=== PATIENT | male | born 1950 | race Caucasian/White ===

== ENCOUNTER 2016-05-14 19:02 | Emergency (ER) | payer BC ==
[~2016-05-14] VITALS: Ht 172.7 cm; Wt 113.6 kg
[~2016-05-14 19:02] MED LIST: ALLO100T PO; ALLO100T51 PO; ASPI-611 PO; CITA20TA9 PO; CYCL-375 PO; DOCU-168 PO; HYDR-1343 PO; LISI-621 PO; OXYC-544 PO; PNV1TABL77 PO; POLY17PO6 PO; ROPI1TAB12 PO
[2016-05-14 19:09] VITALS: Ht 172.7 cm; Wt 113.6 kg
--- OUTSIDE RECORDS SUMMARY | 2016-05-14 19:10 | XMS REPORT | Referral Summary ---
Author Author [facility] Organization [facility] Address Unknown Phone Unavailable Care Team Providers Care Jet Pilot Name Role Phone Natali Velazquez Primary Care Physician [phone] Encounter [facility] Date(s): 07/07/14 - 07/07/14 [facility] [address] [facility], [address] [address] Discharge Disposition: 01-Home or Self Care Attending Physician: Acosta Pitts MD Vital Signs No data available for this section Problem List Condition Effective Dates Status Health Status Informant Depression(Confirmed Active ) Depression(Confirmed Active ) Depression(Confirmed Active ) GERD Active (gastroesophageal reflux disease)(Confirmed) Gout NOS(Confirmed) Active Hypersomnia with Active sleep apnea(Confirmed) Hypertension, Active benign(Confirmed) Hypertension(Confirm Active ed) Involuntary Active movements(Confirmed) Obesity(Confirmed) Active patient Obesity(Confirmed) Active patient JOSE on Active CPAP(Confirmed)1 RLS (restless legs Active syndrome)(Confirmed) Rotator cuff tear Active (bilateral)(Confirme d) 1uses a c-pap machine Allergies, Adverse Reactions, Alerts Substance Reaction Severity Status aspirin GI Bleeding Active caffeine GI Bleeding Active Medications allopurinol 100 mg oral tablet See Instructions, TAKE TWO TABLETS IN THE AM AND 1 AT BEDTIME, # 60 tabs, eRx: [email or web address], TAKE TWO TABLETS BY MOUTH ONCE DAILY Start Date: 01/01/15 Status: Ordered aspirin 81 mg, Oral, Daily, 0 Refill(s) Start Date: 08/24/13 Status: Ordered citalopram 20 mg oral tablet 20 mg 1 tabs, Oral, Daily, # 90 tabs, 2 Refill(s) Start Date: 09/19/14 Status: Ordered Colace 100 mg oral capsule 100 mg 1 caps, Oral, BID, # 20 caps, 0 Refill(s) Start Date: 01/10/15 Status: Ordered cyclobenzaprine 10 mg oral tablet 10 mg 1 tabs, Oral, BID, as needed for spasm, # 30 tabs, 0 Refill(s) Start Date: 01/10/15 Status: Ordered Flonase 50 mcg/inh nasal spray 2 sprays, Nasal, Daily, # 16 g, 11 Refill(s), Pharmacy: [facility] 242 Start Date: 01/10/14 Stop Date: 01/05/15 Status: Ordered lisinopril 20 mg oral tablet See Instructions, TAKE ONE TABLET BY MOUTH ONCE DAILY, # 30 tabs, 4 Refill(s), eRx: [facility]28, TAKE ONE TABLET BY MOUTH ONCE DAILY Start Date: 08/28/14 Status: Ordered [place] 7.5 mg-325 mg oral tablet 1 -2 tabs, Oral, q4hr, as needed for pain, rx must last 30 days--- fax to [facility], # 90 tabs, 0 Refill(s) Start Date: 09/08/14 Status: Ordered promethazine 25 mg oral tablet See Instructions, 1 tabs Oral q4hr,x30 days,PRN:as needed for nausea/vomiting, # 60 tabs, eRx: [facility], 1 tabs Oral q4hr,x30 days,PRN:as needed for nausea/vomiting Start Date: 12/05/14 Status: Ordered rOPINIRole 1 mg oral tablet See Instructions, TAKE ONE TABLET BY MOUTH 4 TIMES DAILY, # 120 tabs, 2 Refill(s ), eRx: [facility]28, TAKE ONE TABLET BY MOUTH 4 TIMES DAILY Start Date: 12/13/14 Status: Ordered Roxicodone 5 mg oral tablet 1-3 tabs, Oral, q3hr, as needed for pain, 0 Refill(s) Start Date: 01/10/15 Status: Ordered Results No data available for this section Immunizations No data available for this section Procedures Procedure Date Related Diagnosis Body Site Colonoscopy1 09/05/13 Athr knees shoulders2 Back surgery Carpal tunnel release Nasal septum repair3 Rotator cuff repair4 Vasectomy 1 normal, repeat in 10 years 2see conversion document. 3see conversion document. 4x6 Social History Social History Type Response Smoking Status Former smoker; Type: Cigarettes; Tobacco use per day: More than 1 pack; Number of years: 20 Assessment and Plan Extracted from: Title: CPAP VON Author: Shoshana Mcpherson PRIMER WATERPROOFING MACHINE OPERATOR Date: 07/06/14 SUPPLIES
--- OUTSIDE RECORDS SUMMARY | 2016-05-14 19:10 | XMS REPORT | Referral Summary ---
Author Author [facility] [place] Organization [facility] [place] Address Unknown Phone Unavailable Care Team Providers Care Plastering Contractor Name Role Phone Marcus Natali Primary Care Physician [phone] Encounter Date(s): 10/02/14 - 10/02/14 [facility] [place] [address], [place] [address] Discharge Disposition: 01-Home or Self Care Attending Physician: Hermelindo Dougherty MD Vital Signs No data available for [...] AND 1 AT BEDTIME, # 60 tabs, 3 Refill(s), Pharmacy: [facility], TAKE TWO TABLETS IN THE AM AND 1 AT BEDTIME Start Date: 01/24/15 Status: Ordered aspirin 81 mg, Oral, Daily, [...] # 16 g, 11 Refill(s), Pharmacy: [facility] 242 Start Date: 01/10/14 Stop Date: 01/05/15 Status: Ordered lisinopril 20 mg oral tablet See Instructions, TAKE ONE TABLET BY MOUTH ONCE DAILY, # 90 Each, 0 Refill(s), Pharmacy: [facility] 242 Start Date: 02/19/15 Status: Ordered [place] 7.5 mg-325 mg oral tablet 1 -2 tabs, Oral, q4hr, as needed for pain, rx must last 30 days--- fax to [facility], # 90 tabs, 0 Refill(s) Start Date: 09/08/14 Status: Ordered promethazine 25 mg oral tablet See Instructions, 1 tabs Oral q4hr,x30 days,PRN:as needed for nausea/vomiting, # 60 tabs, 3 Refill(s), Pharmacy: [facility], 1 tabs Oral q4hr,x30 days,PRN:as needed for nausea/vomiting Start Date: 01/25/15 Status: Ordered rOPINIRole 1 mg oral tablet See Instructions, TAKE ONE TABLET BY MOUTH 4 TIMES DAILY, # 120 tabs, 1 Refill(s ), Pharmacy: [facility]28, TAKE ONE TABLET BY MOUTH 4 TIMES DAILY Start Date: 03/20/15 Status: Ordered Results No data available for [...] Assessment and Plan Extracted from: Title: CPAP CHANGE PRESSURE Author: Jennifer Hines HAIR MACHINE OPERATOR Date: 10/02/14 Increased CPAP pressure to 13cm h20 per Dr. Fajardo.
--- OUTSIDE RECORDS SUMMARY | 2016-05-14 19:10 | XMS REPORT | Referral Summary ---
Author Author [facility] [place] Organization [facility], [place] [address] [place] Address Unknown Phone Unavailable Care Team Providers Care Lace Weaver Name Role Phone Natali Velazquez Primary Care Physician [phone] Encounter [facility] [id number] Date(s): 05/15/15 - 05/15/15 [facility], [address] [place] [address] [place], [place] [address] Discharge Disposition: 01-Home or Self Care Attending Physician: Noemi Lin Admitting Physician: Noemi Lin Referring Physician: Noemi Lin Vital Signs No data available for this [...] AND 1 AT BEDTIME, # 60 tabs, 1 Refill(s), eRx: [facility], TAKE TWO TABLETS IN THE AM AND 1 AT BEDTIME Start Date: 05/15/15 Status: Ordered aspirin 81 mg, Oral, Daily, [...] oral tablet 10 mg 1 tabs, Oral, Daily, as needed for spasm, # 30 tabs, 0 Refill(s) Start Date: 01/10/15 Status: Ordered lisinopril 20 mg oral tablet See Instructions, TAKE ONE TABLET BY MOUTH ONCE DAILY, # 90 Each, 0 Refill(s), Pharmacy: [facility] 2428 Start Date: 02/19/15 Status: Ordered MiraLax 17 g, Oral, Daily, 0 Refill(s) Start Date: 04/26/15 Status: Ordered multivitamin Daily, 0 Refill(s) Start Date: 04/26/15 Status: Ordered [place] 7.5 mg-325 mg oral tablet 1 -2 tabs, Oral, q4hr, as needed for pain, rx must last 30 days--- fax to [facility], # 90 tabs, 0 Refill(s) Start Date: 09/08/14 Status: Ordered promethazine 25 mg oral tablet See Instructions, 1 tabs Oral q4hr,x30 days,PRN:as needed for nausea/vomiting, # 60 tabs, 3 Refill(s), Pharmacy: [facility]28, 1 tabs Oral q4hr,x30 days,PRN:as needed for nausea/vomiting Start Date: 01/25/15 Status: Ordered rOPINIRole 1 mg oral tablet See Instructions, TAKE ONE TABLET BY MOUTH 4 TIMES DAILY, # 120 tabs, 1 Refill(s ), Pharmacy: [facility] 2428, TAKE ONE TABLET BY MOUTH 4 TIMES DAILY Start Date: 03/20/15 Status: Ordered Roxicodone 5 mg oral tablet 1-3 tabs, Oral, q3hr, as needed for pain, 0 Refill(s) Start Date: 04/26/15 Status: Ordered Results No data available for [...] Assessment and Plan Extracted from: Title: CPAP SET UP Author: Alicia Reynoso FISH HEADER Date: 05/15/15 Replacement cpap S10 Airsense Autoset @13cm per Noemi HANDY / Solitario lt: lg with headgear, S10 filters. Purchase
--- OUTSIDE RECORDS SUMMARY | 2016-05-14 19:11 | XMS REPORT | Referral Summary ---
Author Author [facility] [place] Organization [facility] [place] Address Unknown Phone Unavailable Care Team Providers Care Windlace Machine Operator Name Role Phone MarcusNatali Primary Care Physician [phone] Encounter [facility] [id number] Date(s): 08/08/14 - 08/08/14 [facility] [place] [address] [place], [place] [address] Discharge Diagnosis: RLS (restless legs syndrome) Discharge Diagnosis: Hypersomnia with sleep apnea Discharge Diagnosis: JOSE on CPAP Discharge Disposition: 01-Home or Self Care Attending Physician: Hermelindo Dougherty MD Admitting Physician: Hermelindo Dougherty MD Referring Physician: Noemi Lin Vital Signs Most recent to 1 oldest [Reference Range]: Peripheral Pulse 87 bpm Rate [60-100 bpm] (08/08/14 3:41 PM) Blood Pressure 118/80 mmHg [90-140/60-90 mmHg] (08/08/14 3:41 PM) SpO2 95 % (08/08/14 3:41 PM) Problem List Condition Effective Dates Status Health [...] BEDTIME, # 60 tabs, 3 Refill(s), Pharmacy: [facility] 2428, TAKE TWO TABLETS IN THE AM [...] Daily, # 16 g, 11 Refill(s), Pharmacy: [place] [address] Start Date: 01/10/14 Stop Date: 01/05/15 Status: Ordered lisinopril 20 mg oral tablet See Instructions, TAKE ONE TABLET BY MOUTH ONCE DAILY, # 30 tabs, eRx: [facility], TAKE ONE TABLET BY MOUTH ONCE DAILY Start Date: 01/18/15 Status: Ordered [place] 7.5 mg-325 mg oral tablet 1 -2 tabs, Oral, q4hr, as needed for pain, rx must last 30 days--- fax to [facility], # 90 tabs, 0 Refill(s) Start Date: 09/08/14 Status: Ordered promethazine 25 mg oral tablet See Instructions, 1 tabs Oral q4hr,x30 days,PRN:as needed for nausea/vomiting, # 60 tabs, 3 Refill(s), Pharmacy: [facility] 242, 1 tabs Oral q4hr,x30 days,PRN:as needed for nausea/vomiting Start Date: 01/25/15 Status: Ordered rOPINIRole 1 mg oral tablet See Instructions, TAKE ONE TABLET BY MOUTH 4 TIMES DAILY, # 120 tabs, 2 Refill(s ), eRx: [facility] 242, TAKE ONE TABLET BY MOUTH 4 TIMES DAILY Start Date: 12/13/14 Status: Ordered Results No data available for [...] 20 Assessment and Plan Extracted from: Title: Office Visit Note Author: Hermelindo Dougherty Date: 08/12/14 Assessment/Plan 1.RLS (restless legs syndrome) - Patient is taking too many medications without a consistent scheule. - Not getting much benefit from current dose of neupro. - Uncertain when he is taking [place]. - Discussed how to apply neupro patch, ideally stick to two areas of two locations. - Change application to AM if possible. - Follow diaries with detailed information on current symptoms and timing of medications. 2.Hypersomnia with sleep apnea - Uncertain if due to medications or severe RLS. 3.JOSE on CPAP - Controlled with good complince.
--- OUTSIDE RECORDS SUMMARY | 2016-05-14 19:11 | XMS REPORT | Referral Summary ---
Author Author [facility] [place] Organization [facility], [place] Address Unknown Phone Unavailable Care Team Providers Care Branch Rental Manager Name Role Phone Natali Velazquez Primary Care Physician [phone] Encounter Date(s): 05/09/15 - 05/09/15 [facility] [place] [address] [place], [place] [address] Discharge Disposition: 01-Home or Self Care Attending Physician: Noemi Lin Admitting Physician: Noemi Lin Vital Signs Most recent to 1 oldest [Reference Range]: Apical Heart Rate 91 bpm [60-100 bpm] (05/09/15 8:03 AM) Blood Pressure 128/70 mmHg [90-140/60-90 mmHg] (05/09/15 8:03 AM) SpO2 98 % (05/09/15 8:03 AM) Problem List Condition Effective Dates Status Health [...] 1 AT BEDTIME, # 60 tabs, eRx: [facility], TAKE TWO TABLETS IN THE AM AND 1 AT BEDTIME Start Date: 04/19/15 Status: Ordered aspirin 81 mg, Oral, Daily, [...] DAILY, # 90 Each, 0 Refill(s), Pharmacy: [facility] 2428 Start Date: 02/19/15 Status: Ordered MiraLax 17 g, Oral, Daily, 0 Refill(s) Start Date: 04/26/15 Status: Ordered multivitamin Daily, 0 Refill(s) Start Date: 04/26/15 Status: Ordered [place] 7.5 mg-325 mg oral tablet 1 -2 tabs, Oral, q4hr, as needed for pain, rx must last 30 days--- fax to [facility], # 90 tabs, 0 Refill(s) Start Date: 09/08/14 Status: Ordered promethazine 25 mg oral tablet See Instructions, 1 tabs Oral q4hr,x30 days,PRN:as needed for nausea/vomiting, # 60 tabs, 3 Refill(s), Pharmacy: [facility]28, 1 tabs Oral q4hr,x30 days,PRN:as needed for nausea/vomiting Start Date: 01/25/15 Status: Ordered rOPINIRole 1 mg oral tablet See Instructions, TAKE ONE TABLET BY MOUTH 4 TIMES DAILY, # 120 tabs, 1 Refill(s ), Pharmacy: [facility] 2428, TAKE ONE TABLET BY MOUTH [...] Number of years: 20 Assessment and Plan No data available for this section
--- OUTSIDE RECORDS SUMMARY | 2016-05-14 19:11 | XMS REPORT | Referral Summary ---
Author Author [facility] [place], [facility] Organization [facility] [place] [facility] Address Unknown Phone Unavailable Care Team Providers Care Edi Programmer Analyst Name Role Phone Rosamaria Soni Primary Care Physician [phone] Encounter Date(s): 12/20/14 - 12/20/14 [facility] [place], [address] [place] [id number] Discharge Diagnosis: GERD (gastroesophageal reflux disease) Discharge Diagnosis: Gout Discharge Diagnosis: Hypertension Discharge Diagnosis: Rotator cuff tear Discharge Diagnosis: RLS (restless legs syndrome) Discharge Diagnosis: JOSE on CPAP Discharge Diagnosis: Depression Discharge Disposition: 01-Home or Self Care Attending Physician: Mic Soni MD Admitting Physician: Mic Soni MD Vital Signs Most recent to 1 oldest [Reference Range]: Temperature Tympanic 36.8 degC [36.6-38.1 degC] (12/20/14 9:11 AM) Peripheral Pulse 92 bpm Rate [60-100 bpm] (12/20/14 9:11 AM) Respiratory Rate 18 br/min [14-20 br/min] (12/20/14 9:11 AM) Blood Pressure 108/68 mmHg [90-140/60-90 mmHg] (12/20/14 9:11 AM) Problem List Condition Effective Dates Status [...] oral tablet See Instructions, TAKE TWO TABLETS BY MOUTH ONCE DAILY, # 60 tabs, 5 Refill(s), eRx: [facility] 2428, TAKE TWO TABLETS BY MOUTH ONCE DAILY Start Date: 08/07/14 Status: Ordered aspirin 81 mg, Oral, Daily, 0 Refill(s) Start Date: 08/24/13 Status: Ordered citalopram 20 mg oral tablet 20 mg 1 tabs, Oral, Daily, # 90 tabs, 2 Refill(s) Start Date: 09/19/14 Status: Ordered Flonase 50 mcg/inh nasal spray 2 sprays, Nasal, Daily, # 16 g, 11 Refill(s), Pharmacy: [place] [id number] Start Date: 01/10/14 Stop Date: 01/05/15 Status: Ordered lisinopril 20 mg oral tablet See Instructions, TAKE ONE TABLET BY MOUTH ONCE DAILY, # 30 tabs, 4 Refill(s), eRx: [facility] 242, TAKE ONE TABLET BY MOUTH ONCE DAILY Start Date: 08/28/14 Status: Ordered [place] 7.5 mg-325 mg oral tablet 1 -2 tabs, Oral, q4hr, as needed for pain, rx must last 30 days--- fax to [facility], # 90 tabs, 0 Refill(s) Start Date: 09/08/14 Status: Ordered promethazine 25 mg oral tablet See Instructions, 1 tabs Oral q4hr,x30 days,PRN:as needed for nausea/vomiting, # 60 tabs, eRx: [facility] 2428, 1 tabs Oral q4hr,x30 days,PRN:as needed for nausea/vomiting Start Date: 12/05/14 Status: Ordered rOPINIRole 1 mg oral tablet See Instructions, TAKE ONE TABLET BY MOUTH 4 TIMES DAILY, # 120 tabs, 2 Refill(s ), eRx: [facility] 2428, TAKE ONE TABLET BY MOUTH 4 TIMES DAILY Start Date: 12/13/14 Status: Ordered Results Hematology Most recent to 1 oldest [Reference Range]: WBC [4.8-10.8 5.0 10*3/uL 10*3/uL] (12/20/14 10:15 AM) RBC [4.60-6.20] 4.19 *LOW* (12/20/14 10:15 AM) Hgb [14.0-18.0 13.9 gm/dL gm/dL] *LOW* (12/20/14 10:15 AM) Hct [42.0-52.0 %] 39.9 % *LOW* (12/20/14 10:15 AM) MCV [82.0-99.0 fL] 95.2 fL (12/20/14 10:15 AM) MCH [27.0-32.0 pg] 33.2 pg *HI* (12/20/14 10:15 AM) MCHC [32.0-36.0 34.8 gm/dL gm/dL] (12/20/14 10:15 AM) RDW [11.5-14.5 %] 12.6 % (12/20/14 10:15 AM) Platelet [150-400 218 10*3/uL 10*3/uL] (12/20/14 10:15 AM) MPV [8.8-14.8 fL] 9.2 fL (12/20/14 10:15 AM) Immature 0.4 % Granulocytes (12/20/14 10:15 AM) [0.0-1.0 %] Neutrophils [51-75 60 % %] (12/20/14 10:15 AM) Lymphocytes [20-46 26 % %] (12/20/14 10:15 AM) Monocytes [4-11 %] 10 % (12/20/14 10:15 AM) Eosinophils [0-4 %] 2 % (12/20/14 10:15 AM) Basophils [0-2 %] 1 % (12/20/14 10:15 AM) Neutro Absolute 2.99 10*3 [1.90-7.00 10*3] (12/20/14 10:15 AM) Lymph Absolute 1.31 10*3 [0.80-3.30 10*3] (12/20/14 10:15 AM) Morrison Absolute 0.51 10*3 [0.30-1.00 10*3] (12/20/14 10:15 AM) Eos Absolute 0.11 10*3 [0.00-0.50 10*3] (12/20/14 10:15 AM) Baso Absolute 0.03 10*3 [0.00-0.20 10*3] (12/20/14 10:15 AM) Coagulation Most recent to 1 oldest [Reference Range]: PT Venous (12/20/14 10:15 AM) INR [0.8-1.2] 1.0 1 (12/20/14 10:15 AM) 1Result Comment: Normal (no anticoagulant): 0.8 - 1.2 Units Routine Therapeutic Range: 2.0 - 3.0 Units High Risk Therapeutic Range: 2.5 - 3.5 Units Chemistry Most recent to 1 oldest [Reference Range]: Sodium Lvl [135-144 138 mEq/L mEq/L] (12/20/14 10:15 AM) Potassium Lvl 4.7 mEq/L [3.5-5.2 mEq/L] (12/20/14 10:15 AM) Chloride [99-111 106 mEq/L mEq/L] (12/20/14 10:15 AM) CO2 [23-31 mEq/L] 24 mEq/L (12/20/14 10:15 AM) AGAP [3-20] 8 (12/20/14 10:15 AM) BUN [8-26 mg/dL] 27 mg/dL *HI* (12/20/14 10:15 AM) Glucose Lvl [70-99 106 mg/dL mg/dL] *HI* (12/20/14 10:15 AM) Creatinine Lvl 1.26 mg/dL [0.72-1.25 mg/dL] *HI* (12/20/14 10:15 AM) eGFR [>60 mL/min] 58 mL/min 1 *ABN* (12/20/14 10:15 AM) Calcium Lvl 9.6 mg/dL [8.9-10.5 mg/dL] (12/20/14 10:15 AM) Albumin Lvl [3.4-4.8 4.6 gm/dL gm/dL] (12/20/14 10:15 AM) Total Protein 7.2 gm/dL [6.2-8.1 gm/dL] (12/20/14 10:15 AM) Globulin [1.8-4.0 2.6 gm/dL gm/dL] (12/20/14 10:15 AM) ALT [0-55 U/L] 49 U/L (12/20/14 10:15 AM) AST [5-34 U/L] 31 U/L (12/20/14 10:15 AM) Alk Phos [40-150 85 U/L U/L] (12/20/14 10:15 AM) Bili Total [0.2-1.2 0.5 mg/dL mg/dL] (12/20/14 10:15 AM) Uric Acid [3.5-7.2 5.8 mg/dL mg/dL] (12/20/14 10:15 AM) 1Result Comment: Multiply eGFR results by 1.21 for race. Immunizations No data available for this section Procedures Procedure Date Related Diagnosis Body Site Collection of venous blood by venipuncture 12/20/14 Colonoscopy1 09/05/13 Athr knees shoulders2 Back surgery [...] Extracted from: Title: Office Visit Note Author: Mic Soni MD Date: 12/20/14 Assessment/Plan Depression GERD (gastroesophageal reflux disease) Gout Ordered: CBC w/ Differential Uric Acid Hypertension Ordered: Comprehensive Metabolic Panel EKG with Interpretation [id number] PT JOSE on CPAP RLS (restless legs syndrome) Rotator cuff tear Plan:I am giving clearance for surgery. Do not take aspirin, ibuprofen, Advil, Aleve, Motrin, or naproxen with in 10 days of surgery. Contact your surgeon for a full list of medicines that you should avoid. If you are having any problems before or after surgery please do not hesitate to call. Continue all current medications other than the aspirin and NSAIDs up until that time. I am checking an EKG and lab tests today. Call if you have any questions or problems prior to surgery.
--- OUTSIDE RECORDS SUMMARY | 2016-05-14 19:11 | XMS REPORT | Referral Summary ---
Author Author [facility] [place] Organization [facility] [place] Address Unknown Phone Unavailable Care Team Providers Care Hot Metal Car Operator Name Role Phone MarcusNatali Primary Care Physician [phone] Encounter [facility] [id number] Date(s): 10/02/14 - 10/02/14 [facility] [place] [address] [place], [place] [address] Discharge Diagnosis: JOSE on CPAP Discharge Diagnosis: Hypersomnia with sleep apnea Discharge Diagnosis: RLS (restless legs syndrome) Discharge Diagnosis: Obesity Discharge Disposition: 01-Home or Self Care Attending Physician: Hermelindo Dougherty MD Admitting Physician: Hermelindo Dougherty MD Vital Signs Most recent to 1 oldest [Reference Range]: Peripheral Pulse 89 bpm Rate [60-100 bpm] (10/02/14 3:37 PM) Blood Pressure 122/66 mmHg [90-140/60-90 mmHg] (10/02/14 3:37 PM) SpO2 93 % (10/02/14 3:37 PM) Problem List Condition Effective Dates Status [...] BEDTIME, # 60 tabs, 3 Refill(s), Pharmacy: [facility], TAKE TWO TABLETS IN THE [...] Daily, # 16 g, 11 Refill(s), Pharmacy: [facility] 242 Start Date: 01/10/14 Stop Date: 01/05/15 Status: Ordered lisinopril 20 mg oral tablet See Instructions, TAKE ONE TABLET BY MOUTH ONCE DAILY, # 90 Each, 0 Refill(s), Pharmacy: [facility] 242 Start Date: 02/19/15 Status: Ordered [place] 7.5 mg-325 mg oral tablet 1 -2 tabs, Oral, q4hr, as needed for pain, rx must last 30 days--- fax to [facility], # 90 tabs, 0 Refill(s) Start Date: 09/08/14 Status: Ordered promethazine 25 mg oral tablet See Instructions, 1 tabs Oral q4hr,x30 days,PRN:as needed for nausea/vomiting, # 60 tabs, 3 Refill(s), Pharmacy: [facility] 2428, 1 tabs Oral q4hr,x30 days,PRN:as needed for nausea/vomiting Start Date: 01/25/15 Status: Ordered rOPINIRole 1 mg oral tablet See Instructions, TAKE ONE TABLET BY MOUTH 4 TIMES DAILY, # 120 tabs, 1 Refill(s ), Pharmacy: [facility]28, TAKE ONE TABLET BY [...] Office Visit Note Author: Hermelindo Dougherty Date: 10/03/14 Assessment/Plan 1.RLS (restless legs syndrome) - Controlled, continue Neupro. 2.JOSE on CPAP - Increase CPAP to 13 cmH2O. 3.Hypersomnia with sleep apnea - Follow up in 6 mon. - Patient advised to avoid driving and other potentially harmful activities if feeling sleepy, drowsy or otherwise impaired. Countermeasures such as pulling over to nap and napping before driving discussed. Obesity - Weight loss recommended.
--- OUTSIDE RECORDS SUMMARY | 2016-05-14 19:11 | XMS REPORT | Referral Summary ---
Author Author [facility] [employer] Organization [facility] [place] Address Unknown Phone Unavailable Care Team Providers Care Outpatient Scheduler Name Role Phone MarcusNatali Primary Care Physician [phone] Encounter VC Date(s): 05/09/15 - 05/09/15 [facility] [place] [address], [place] [address] Discharge Disposition: 01-Home or Self Care Attending Physician: Noemi Lin Vital Signs No data [...] 1 AT BEDTIME, # 60 tabs, eRx: [id number], TAKE TWO TABLETS IN THE [...] DAILY, # 90 Each, 0 Refill(s), Pharmacy: [facility] Start Date: 02/19/15 Status: Ordered MiraLax 17 g, Oral, Daily, 0 Refill(s) Start Date: 04/26/15 Status: Ordered multivitamin Daily, 0 Refill(s) Start Date: 04/26/15 Status: Ordered [place] 7.5 mg-325 mg oral tablet 1 -2 tabs, Oral, q4hr, as needed for pain, rx must last 30 days--- fax to [facility], # 90 tabs, 0 Refill(s) Start Date: 09/08/14 Status: Ordered promethazine 25 mg oral tablet See Instructions, 1 tabs Oral q4hr,x30 days,PRN:as needed for nausea/vomiting, # 60 tabs, 3 Refill(s), Pharmacy: [facility], 1 tabs Oral q4hr,x30 days,PRN:as needed for nausea/vomiting Start Date: 01/25/15 Status: Ordered rOPINIRole 1 mg oral tablet See Instructions, TAKE ONE TABLET BY MOUTH 4 TIMES DAILY, # 120 tabs, 1 Refill(s ), Pharmacy: [facility], TAKE ONE TABLET [...] Assessment and Plan Extracted from: Title: CPAP FAX Author: Alicia Reynoso NUT PROCESS HELPER Date: 05/09/15 [place]ed [place] [facility] [place] Noemi HANDY. Extracted from: Title: CPAP SUPPLIES Author: Alicia Reynoso NUT PROCESS HELPER Date: 05/09/15 Std tubing, S8 filters
--- OUTSIDE RECORDS SUMMARY | 2016-05-14 19:11 | XMS REPORT | Referral Summary ---
Author Author [facility] Organization [facility] Address Unknown Phone Unavailable Care Team Providers Care Power Distribution Engineer Name Role Phone Rosamaria Soni Primary Care Physician [phone] Encounter VC Date(s): 07/17/14 - 07/17/14 [facility], [address] JANELL [place] [id number] Discharge Diagnosis: BENIGN ESSENTIAL HYPERTENSION Discharge Disposition: 01-Home or Self Care Attending Physician: Mic Soni MD Admitting Physician: Mic Soni MD Referring Physician: Mic Soni MD Vital Signs Most recent to 1 oldest [Reference Range]: Temperature Tympanic 36.5 degC [36.6-38.1 degC] *LOW* (07/17/14 4:18 PM) Blood Pressure 112/64 mmHg [90-140/60-90 mmHg] (07/17/14 4:18 PM) Problem List Condition Effective Dates Status [...] DAILY, # 60 tabs, 5 Refill(s), eRx: [id number], TAKE TWO TABLETS BY MOUTH ONCE DAILY Start Date: 08/07/14 Status: Ordered aspirin 81 mg, Oral, Daily, 0 Refill(s) Start Date: 08/24/13 Status: Ordered citalopram 20 mg oral tablet 20 mg 1 tabs, Oral, Daily, # 90 tabs, 2 Refill(s) Start Date: 09/19/14 Status: Ordered Flonase 50 mcg/inh nasal spray 2 sprays, Nasal, Daily, # 16 g, 11 Refill(s), Pharmacy: [facility]28 Start Date: 01/10/14 Stop Date: 01/05/15 Status: Ordered lisinopril 20 mg oral tablet See Instructions, TAKE ONE TABLET BY MOUTH ONCE DAILY, # 30 tabs, 4 Refill(s), eRx: [facility], TAKE ONE TABLET BY MOUTH ONCE DAILY Start Date: 08/28/14 Status: Ordered Neupro 3 mg/24 hr transdermal film, extended release 1 patches, Topical, Daily, # 90 Each, 1 Refill(s), Pharmacy: [place] [id number], 1 patches Topical Daily Start Date: 10/20/14 Status: Ordered [place] 7.5 mg-325 mg oral tablet 1 -2 tabs, Oral, q4hr, as needed for pain, rx must last 30 days--- fax to [facility], # 90 tabs, 0 Refill(s) Start Date: 09/08/14 Status: Ordered omeprazole 20 mg oral delayed release capsule See Instructions, TAKE ONE CAPSULE BY MOUTH EVERY DAY BEFORE A MEAL, # 30 unknown unit, 5 Refill(s), eRx: [facility], TAKE ONE CAPSULE BY MOUTH EVERY DAY BEFORE A MEAL Start Date: 12/23/13 Status: Ordered promethazine 25 mg oral tablet See Instructions, 1 tabs Oral q4hr,x30 days,PRN:as needed for nausea/vomiting, # 60 tabs, eRx: [facility], 1 tabs Oral q4hr,x30 days,PRN:as needed for nausea/vomiting Start Date: 12/05/14 Status: Ordered rOPINIRole 1 mg oral tablet See Instructions, TAKE ONE TABLET BY MOUTH 4 TIMES DAILY, # 120 tabs, 2 Refill(s ), eRx: [facility], TAKE ONE TABLET BY MOUTH 4 TIMES DAILY Start Date: 11/4/15 Status: Ordered Results No data available for [...] Visit Note Author: Mic Soni MD Date: 07/17/14 Assessment/Plan BENIGN ESSENTIAL HYPERTENSION GERD (gastroesophageal reflux disease) RLS (restless legs syndrome) Plan: Okay to restart the omeprazole. You asked me for prescription of Phenergan night that. Continue Flonase for allergies. Follow-up in 6 months for sooner as needed. Orders: promethazine, 25 mg 1 tabs, Oral, q4hr, as needed for nausea/vomiting , X 30 days, # 60 tabs, 0 Refill(s), Pharmacy: [id number], 1 tabs Oral q4hr,x30 days,PRN:as needed for nausea/vomiting
--- OUTSIDE RECORDS SUMMARY | 2016-05-14 19:11 | XMS REPORT | Continuity of Care Document ---
Author Author [facility] Organization [facility] Address Unknown Phone Unavailable Allergies Active Description Code Type Severity Reaction Onset Reported/Identified Relationship to Patient Clinical Status Yes aspirin NKMA N/A GI Bleeding 06/08/2013 Yes caffeine NKMA N/A GI Bleeding 06/08/2013 Medications Problems Procedures Results Test Result Range Hemoglobin A1C - 11/13/15 10:30 Hemoglobin A1C 5.1 % 4.1-5.6 Estimated Average Glucose - 11/13/15 10:30 Estimated Average Glucose 99.7 mg/dL Encounters ACCT No. Visit Date/Time Discharge Status Pt. Type Provider Facility Loc./Unit Complaint [id number] 05/05/2016 09:53:00 2016 23:59:00 DIS Outpatient Scotty Moncada, Hermelindo A [facility] CP SUPPLIES [id number] 05/05/2016 08:19:00 2016 23:59:00 DIS Outpatient Scotty Moncada Hermelindo A [facility] 2 to 3 mo ck cpap [id number] 02/18/2016 08:18:00 2016 23:59:00 DIS Outpatient Scotty Moncada, Hermelindo A [facility] 3 mo cpap ck [id number] 11/20/2015 08:03:00 2015 23:59:00 DIS Outpatient Scotty Moncada Hermelindo A [facility] 6 week rck rls management [id number] 11/13/2015 07:59:00 2015 23:59:00 DIS Outpatient Marcelino Hodge [facility] New FM TCPA, Skin tags [id number] 08/07/2015 14:28:00 2015 23:59:00 DIS Outpatient Noemi Lin [facility] cpap supplies [id number] 08/07/2015 13:14:00 2015 23:59:00 DIS Outpatient [facility] 3 MON HEENA CPAP [id number] 08/06/2015 16:56:00 2015 23:59:00 DIS Outpatient [facility] 3 mo heena cpap [id number] 05/15/2015 12:58:00 2015 23:59:00 DIS Outpatient Noemi Lin [facility] replace cpap @13 no auth purchase [id number] 05/15/2015 10:05:00 2015 23:59:00 DIS Outpatient [facility] CPAP SUPPLIES [id number] 05/09/2015 09:46:00 2015 23:59:00 DIS Outpatient [facility] CPAP SUPPLIES [id number] 05/09/2015 07:56:00 2015 23:59:00 DIS Outpatient [facility] 6 mo fu cpap [id number] 04/09/2015 07:59:00 2015 23:59:00 DIS Outpatient Marcelino Hodge [facility] New FM PRE OP CPE FOR RT SHOULDER REPLACEMENT DR HARMON 3.14 [id number] 12/20/2014 09:03:00 2014 23:59:00 DIS Outpatient Mic Soni [facility] New FM pre op for total shoulder on [address] harmon [id number] 10/02/2014 16:04:00 2014 23:59:00 DIS Outpatient Hermelindo Dougherty [facility] cpap pressure change [id number] 10/02/2014 15:19:00 2014 23:59:00 DIS Outpatient Hermelindo Dougherty [facility] 6 to 8 week fu [id number] 09/19/2014 15:49:00 2014 23:59:00 DIS Outpatient Mic Soni [facility] New FM HEENA ELBERT [id number] 08/08/2014 15:17:00 2014 23:59:00 DIS Outpatient Scotty Hermelindo Moncada A [facility] 1 mo ck meds cpap [id number] 07/06/2014 13:56:00 2014 23:59:00 DIS Outpatient [facility] W CPAP SUPPLIES [id number] 01/10/2014 15:18:00 2013 23:59:00 DIS Outpatient Mic Soni [facility] New FM 3 WK HEENA/RLS [id number] 10/19/2013 11:51:00 2013 23:59:00 DIS Outpatient [facility] CPAP SUPPLIES [id number] 05/09/2015 08:31:00 ACT Outpatient Noemi Lin [facility] SUPPLIES [id number] 01/24/2015 08:18:00 ACT Outpatient Niesha Velazquez [facility] New FM ESTABLISH WAS PATIENT OF DR SONI [id number] 07/17/2014 16:07:00 Document Registration [id number] 07/07/2014 17:35:00 Document Registration [id number] 07/06/2014 15:57:00 Document Registration
--- OUTSIDE RECORDS SUMMARY | 2016-05-14 19:11 | XMS REPORT | Continuity of Care Document ---
Author Author [facility] Organization [facility] Address Unknown Phone Unavailable Support Name Relationship Address Phone SERA GONZÁLES MD Caregiver [address] [place] [address] [place] [phone] NANCY ALCALA FACS, MD Caregiver [address] [place] [address] [place] [phone] ASHWIN RIYA Next Of Kin [address] [place] [address] Insurance Providers Payer Name Policy Number Subscriber Name Relationship [facility] [id number] Tray Christopher 18 Self Advance Directives Directive Response Recorded Date/Time Dr Souza Resuscitation Status Full Code 09/04/13 11:00am Problems No known problems or medical conditions. Medications Medication Dose Route Sig Days/Qty Instructions Order Date Discontinued Date Status Telmisartan 20 Mg PO DAILY 02/16/09 04/01/11 Discontinued Allopurinol 300 Mg PO BEDTIME 02/16/09 Active Aspirin 81 Mg PO DAILY 02/16/09 Active Lisinopril 20 Mg PO DAILY 04/01/11 Active Fluoxetine Hcl 40 Mg PO DAILY 04/01/11 07/05/12 Discontinued Citalopram Hydrobromide 20 Mg PO BEDTIME 07/05/12 Active Bupropion Hcl 75 Mg PO BEDTIME 07/05/12 Active Hydrocodone Bit/Acetaminophen 2 Tab PO TWICE A DAY 09/15/12 Active Gabapentin Mg PO SEE INSTRUCTIONS 600 MG PO NOON; 900 MG PO HS Active Baclofen 10 Mg PO THREE TIMES A DAY 10/07/12 Active Omeprazole 20 Mg PO DAILY 09/02/13 Active Niacin 1 Tab PO TWICE A DAY 09/02/13 Active Social History Social History Problem Response Recorded Date/Time Smoking Status Former smoker 09/05/2013 7:59am Chewing Tobacco Status No 10/06/2012 12:13pm Hx Substance Use No 09/02/2013 5:26pm Hx Alcohol Use Y A BEER OR TWO A DAY 09/05/2013 7:59am Has the pt used tobacco in the last 12 months No 09/05/2013 7:59am Query Response Start Date Stop Date Smoking Status Former smoker Hospital Discharge Instructions No hospital discharge instructions. Plan of Care No plan of care. Functional Status No functional status results. Allergies, Adverse Reactions, Alerts Allergen Type Severity Reaction Status Last Updated Aspirin Adverse Reaction Mild Active 09/15/12 Naproxen Allergy Intermediate ULCERS Active 09/15/12 anti inflamitories Adverse Reaction severe nausea Active 04/01/11 Immunizations Name Given Type Hx Influenza Vaccination No Historical Hx Pneumococcal Vaccination No Historical Hx Influenza Vaccination No Historical Vital Signs Acute Vital Signs Vital Response Date/Time Temperature (Fahrenheit) 97.9 deg F (96.8 - 99.1) Temperature (Calculated Celsius) 36.74057 degrees C (36.0 - 37.3) Temperature Source Temporal Pulse Rate (adult) 66 bpm (60 - 100) Respiratory Rate 14 breaths/min (10 - 20) O2 Sat by Pulse Oximetry 96 % (90 - 100) Blood Pressure 121/72 mm Hg Blood Pressure Source Automatic Cuff Height 5 ft 8.5 in Weight 216 lb Body Mass Index 32.0 kg/m^2 Results Test Source Date Result Interp. Ref. Range Comments Basophils # (Auto) July 05, 2012 12:35pm 0.0 T/MM3 N 0-0.2 Basophils (%) (Auto) July 05, 2012 12:35pm 0.3 % N 0-2 Eosinophils # (Auto) July 05, 2012 12:35pm 0.0 T/MM3 N 0-0.5 Eosinophils (%) (Auto) July 05, 2012 12:35pm 0.1 % N 0-4 Erythrocyte Sedimentation Rate November 08, 2007 5:21pm 8 MM/HR - Hematocrit July 05, 2012 12:35pm 38.2 % L 41-53 Hemoglobin July 05, 2012 12:35pm 13.3 GM/DL L 13.5-17.5 Lymphocytes # (Auto) July 05, 2012 12:35pm 1.1 T/MM3 N 1-4.8 Lymphocytes (%) (Auto) July 05, 2012 12:35pm 15.4 % L 23-45 Mean Corpuscular Hemoglobin July 05, 2012 12:35pm 32.3 UUG N 26-34 Mean Corpuscular Hemoglobin Concent July 05, 2012 12:35pm 34.8 GM/DL N 31 -37 Mean Corpuscular Volume July 05, 2012 12:35pm 92.7 UM3 N 80-100 Mean Platelet Volume July 05, 2012 12:35pm 8.7 UM3 L 9.4-12.4 Monocytes # (Auto) July 05, 2012 12:35pm 0.9 T/MM3 H 0-0.8 Monocytes (%) (Auto) July 05, 2012 12:35pm 13.2 % H 0-9.0 Neutrophils # (Auto) July 05, 2012 12:35pm 4.9 T/MM3 N 1.8-7.7 Neutrophils (%) (Auto) July 05, 2012 12:35pm 70.7 % H 33-66 Platelet Count July 05, 2012 12:35pm 189 T/MM3 N 130-400 RDW Standard Deviation July 05, 2012 12:35pm 43.4 FL N 36.9-50.2 Red Blood Count July 05, 2012 12:35pm 4.12 M/MM3 L 4.50-5.90 Uric Acid November 08, 2007 5:21pm 8.6 MG/DL H 3.5-8.5 White Blood Count July 05, 2012 12:35pm 7.0 T/MM3 N 4.5-11.0 Immature Granulocyte # (Auto) July 05, 2012 12:35pm 0.02 T/MM3 N 0.00- 0.03 Immature Granulocyte % (Auto) July 05, 2012 12:35pm 0.3 % N 0.0-0.5 Venous Blood Lactate July 05, 2012 12:35pm 1.2 MMOL/L N 0.6-2.2 Blood Culture Blood July 05, 2012 12:35pm NO GROWTH AFTER 5 DAYS Procedures Procedure Status Date Provider(s) Colonoscopy completed 09/05/13 NANCY ALCALA MD, FACS, CWS
--- OUTSIDE RECORDS SUMMARY | 2016-05-14 19:11 | XMS REPORT | Referral Summary ---
Author Author [facility] [employer] Organization [facility] [place] Address Unknown Phone Unavailable Care Team Providers Care Railroad Auditor Name Role Phone MarcusNatali Primary Care Physician [phone] Encounter Date(s): 08/07/15 - 08/07/15 [facility] [place] [address], [place] [address] Discharge Disposition: 01-Home or Self Care Attending [...] See Instructions, TAKE TWO TABLETS BY MOUTH IN THE MORNING AND ONE AT BEDTIME, # 60 tabs, 2 Refill(s), eRx: [id number], TAKE TWO TABLETS BY MOUTH IN THE MORNING AND ONE AT BEDTIME Start Date: 06/25/15 Status: Ordered aspirin 81 mg, Oral, Daily, 0 Refill(s) Start Date: 08/24/13 Status: Ordered citalopram 20 mg oral tablet 20 mg 1 tabs, Oral, Daily, pt due for appointment, # 30 tabs, 0 Refill(s), Pharmacy: [facility], 1 tabs Oral Daily,Instr:pt due for appointment Start Date: 07/26/15 Status: Ordered Colace 100 mg oral capsule 100 mg 1 caps, Oral, BID, # 20 caps, 0 Refill(s) Start Date: 01/10/15 Status: Ordered cyclobenzaprine 10 mg oral tablet 10 mg 1 tabs, Oral, Daily, as needed for spasm, # 30 tabs, 0 Refill(s) Start Date: 01/10/15 Status: Ordered gabapentin 100 mg oral capsule See Instructions, Take 1 cap daily x 2 days, then 2 caps daily x 2 days, then 3 caps daily., # 90 tabs, 0 Refill(s), Pharmacy: [facility], Take 1 cap daily x 2 days, then 2 caps daily x 2 days, then 3 caps daily. Start Date: 08/07/15 Status: Ordered lisinopril 20 mg oral tablet 20 mg 1 tabs, Oral, Daily, pt due for appointment, # 30 tabs, 0 Refill(s), Pharmacy: [facility] Start Date: 07/26/15 Status: Ordered MiraLax 17 g, Oral, Daily, 0 Refill(s) Start Date: 04/26/15 Status: Ordered multivitamin Daily, 0 Refill(s) Start Date: 04/26/15 Status: Ordered [place] 7.5 mg-325 mg oral tablet 1 -2 tabs, Oral, q4hr, as needed for pain, rx must last 30 days--- fax to [facility], # 90 tabs, 0 Refill(s) Start Date: 09/08/14 Status: Ordered promethazine 25 mg oral tablet See Instructions, 1 tabs Oral q4hr,x30 days,PRN:as needed for nausea/vomiting, # 60 tabs, 3 Refill(s), Pharmacy: [facility], 1 tabs Oral q4hr,x30 days,PRN:as needed for nausea/vomiting Start Date: 01/25/15 Status: Ordered rOPINIRole 1 mg oral tablet 1 mg 1 tabs, Oral, QID, pt due for appointment, # 120 tabs, 0 Refill(s), Pharmacy: [facility], 1 tabs Oral QID,Instr:pt due for appointment Start Date: 07/26/15 Status: Ordered Roxicodone 5 mg oral tablet [...]
--- OUTSIDE RECORDS SUMMARY | 2016-05-14 19:11 | XMS REPORT | Referral Summary ---
Author Author [facility] Organization [facility] [place] Address Unknown Phone Unavailable Care Team Providers Care Reinforcing Steel Worker Name Role Phone MarcusNatali Primary Care Physician [phone] Encounter Date(s): 11/20/15 - 11/20/15 [facility] [place] [address], [place] [address] Discharge Diagnosis: Hypersomnia with sleep apnea Discharge Diagnosis: JOSE on CPAP Discharge Diagnosis: RLS (restless legs syndrome) Discharge Disposition: 01-Home or Self Care Attending Physician: Hermelindo Dougherty MD Admitting Physician: Hermelindo Dougherty MD Vital Signs Most recent to 1 oldest [Reference Range]: Peripheral Pulse 84 bpm Rate [60-100 bpm] (11/20/15 9:26 AM) Blood Pressure 126/70 mmHg [90-140/60-90 mmHg] (11/20/15 9:26 AM) SpO2 93 % (11/20/15 9:26 AM) Problem List Condition Effective Dates Status [...] AND ONE AT BEDTIME, # 60 tabs, 1 Refill(s), eRx: [facility], TAKE TWO TABLETS BY MOUTH IN THE MORNING AND ONE AT BEDTIME Start Date: 10/22/15 Status: Ordered aspirin 81 mg, Oral, Daily, 0 Refill(s) Start Date: 08/24/13 Status: Ordered citalopram 20 mg oral tablet 20 mg 1 tabs, Oral, Daily, pt due for appointment, # 30 tabs, 0 Refill(s), Pharmacy: [facility], 1 tabs Oral Daily,Instr:pt due for appointment Start Date: 07/26/15 Status: Ordered Colace 100 mg oral capsule 100 mg 1 caps, Oral, BID, # 20 caps, 0 Refill(s) Start Date: 01/10/15 Status: Ordered cyclobenzaprine 10 mg oral tablet 10 mg 1 tabs, Oral, Daily, as needed for spasm, # 30 tabs, 0 Refill(s) Start Date: 01/10/15 Status: Ordered gabapentin 1,200 mg, Oral, daily at bedtime., 2 Refill(s) Start Date: 11/20/15 Status: Ordered lisinopril 20 mg oral tablet 20 mg 1 tabs, Oral, Daily, PT DUE FOR APPOINTMENT, # 30 tabs, 0 Refill(s), Pharmacy: [facility] Start Date: 11/14/15 Status: Ordered MiraLax 17 g, Oral, Daily, 0 Refill(s) Start Date: 04/26/15 Status: Ordered multivitamin Daily, 0 Refill(s) Start Date: 04/26/15 Status: Ordered [place] 7.5 mg-325 mg oral tablet 1 -2 tabs, Oral, q4hr, as needed for pain, rx must last 30 days--- fax to [facility], # 90 tabs, 0 Refill(s) Start Date: 09/08/14 Status: Ordered promethazine 25 mg oral tablet See Instructions, 1 tabs Oral q4hr,x30 days,PRN:as needed for nausea/vomiting, # 60 tabs, 3 Refill(s), Pharmacy: [facility], 1 tabs Oral q4hr,x30 days,PRN:as needed for nausea/vomiting Start Date: 01/25/15 Status: Ordered rOPINIRole 1 mg oral tablet 1 mg 1 tabs, Oral, QID, pt due for appointment, # 120 tabs, 0 Refill(s), Pharmacy: [facility], 1 tabs Oral QID,Instr:pt due [...] Office Visit Note Author: Hermelindo Dougherty Date: 11/20/15 MD Assessment/Plan 1.RLS (restless legs syndrome) 2.JOSE on CPAP 3.Hypersomnia with sleep apnea - JOSE controlled. No issues. - Persistent sleepiness. - Increase Gabapentin to 1200mg. Single dose at bedtime. - Patient advised to avoid driving and other potentially harmful activities if feeling sleepy, drowsy or otherwise impaired. Countermeasures such as pulling over to nap and napping before driving discussed. - Follow up in 3 months. - Patient to call with reports. May need to come in sooner.
--- OUTSIDE RECORDS SUMMARY | 2016-05-14 19:11 | XMS REPORT ---
Author Author Chand[facility] Rodriguez Organization Unknown Address [address], [place] [id number] Phone Care Team Providers Care Wood Carving Lathe Operator Name Role Phone Zachariah MOSER PP Unavailable Reason for Referral No Reason for Referral was given. History of Present Illness No HPI available. Problems * Normal Routine History And Physical Adult (V70.0); (Active) Medication * Lisinopril 20 MG Oral Tablet; TAKE 1 TABLET DAILY.; Start Date: 05/31/2012 ( Active) * Citalopram Hydrobromide 20 MG Oral Tablet; TAKE 1 TABLET DAILY DIRECTED.; Start Date: 05/31/2012 (Active) * Allopurinol 100 MG Oral Tablet; TAKE 2 TABLETS DAILY.; Start Date: 05/31/2012 (Active) * BuPROPion HCl 75 MG Oral Tablet; 1 daily; Start Date: 05/31/2012 (Active) * Baclofen 10 MG Oral Tablet; Start Date: 05/31/2012 (Active) * Misoprostol 200 MCG Oral Tablet; Start Date: 05/31/2012 (Active) * Gabapentin 300 MG Oral Capsule; TAKE 1 CAPSULE 3 TIMES DAILY.; Start Date: (Active) * Diclofenac Sodium 75 MG Oral Tablet Delayed Release; Start Date: 05/31/2012 ( Active) * Aspirin 81 MG Oral Tablet; Start Date: 05/31/2012 (Active) Allergies and Adverse Reactions * NSAIDs (Active) Past Medical History * No Significant Medical History Procedures Procedure Procedure Date Date Completed Status Rotator Cuff Repair - - Active Knee Surgery - - Active Rhinoplasty - - Active Social History * Working Ethical Hacker (Active) * Alcohol Use (Active) * Caffeine Use (Active) * Former Smoker (V15.82); (Active) * Marital History - Currently (Active) Vital Signs Date Description Test Result 31 May 2012 01:37 PM recorded by: Roderick Gaxiola Height 68 in Weight 227 lb Body Mass Index Calculated 34.4 Body Surface Area Calculated 2.16 BP Systolic 122 mm[Hg] BP Diastolic 70 mm[Hg] Heart Rate 76 /min Advance Directives * No Advance Directives available. Encounters * Appointment 05/31/2012 * RTNPT , Provider: Michael Schofield, Status: Emmanuel , Time: 4:00 PM 2012
--- OUTSIDE RECORDS SUMMARY | 2016-05-14 19:11 | XMS REPORT | Referral Summary ---
Author Author [facility] Organization [facility] Address Unknown Phone Unavailable Care Team Providers Care Industrial Locomotive Operator Name Role Phone Natali Velazquez Primary Care Physician [phone] Encounter VC Date(s): 07/17/14 - 07/17/14 [facility], [address] [place] [id number] Discharge Diagnosis: BENIGN ESSENTIAL HYPERTENSION Discharge Disposition: [...] BEDTIME, # 60 tabs, 3 Refill(s), Pharmacy: [id number], TAKE TWO TABLETS IN THE AM AND [...] Daily, # 16 g, 11 Refill(s), Pharmacy: [facility] Start Date: 01/10/14 Stop Date: 01/05/15 Status: Ordered lisinopril 20 mg oral tablet See Instructions, TAKE ONE TABLET BY MOUTH ONCE DAILY, # 30 tabs, eRx: [facility], TAKE ONE TABLET BY MOUTH ONCE DAILY Start Date: 01/18/15 Status: Ordered [place] 7.5 mg-325 mg oral tablet 1 -2 tabs, Oral, q4hr, as needed for pain, rx must last 30 days--- fax to [facility], # 90 tabs, 0 Refill(s) Start Date: 09/08/14 Status: Ordered promethazine 25 mg oral tablet See Instructions, 1 tabs Oral q4hr,x30 days,PRN:as needed for nausea/vomiting, # 60 tabs, 3 Refill(s), Pharmacy: [facility], 1 tabs Oral q4hr,x30 days,PRN:as needed for nausea/vomiting Start Date: 01/25/15 Status: Ordered rOPINIRole 1 mg oral tablet See Instructions, TAKE ONE TABLET BY MOUTH 4 TIMES DAILY, # 120 tabs, 2 Refill(s ), eRx: [facility], TAKE ONE TABLET BY MOUTH 4 TIMES DAILY Start Date: 12/13/14 Status: Ordered Results No data available for this section Immunizations No data available for this section Procedures Procedure Date Related Diagnosis Body Site Colonoscopy1 7/28/14 Athr knees shoulders2 Back surgery Carpal tunnel release Nasal septum repair3 Rotator cuff repair4 Vasectomy 1 normal, repeat in 10 years 2see conversion document. 3see conversion document. 4x6 Social History Social History Type Response Smoking Status Former smoker; Type: Cigarettes; Tobacco use per day: More than 1 pack; Number of years: 20 Assessment and Plan Extracted from: Title: Office Visit Note Author: iMc Soni MD Date: 07/17/14 Assessment/Plan BENIGN ESSENTIAL [...] days, # 60 tabs, 0 Refill(s), Pharmacy: [facility], 1 tabs Oral q4hr,x30 days,PRN:as needed for nausea/vomiting
--- OUTSIDE RECORDS SUMMARY | 2016-05-14 19:11 | XMS REPORT | Referral Summary ---
Author Author [facility] Organization [facility] Address Unknown Phone Unavailable Care Team Providers Care Ground Wood Supervisor Name Role Phone Natali Velazquez Primary Care Physician [phone] Encounter VC Date(s): 09/19/14 - 09/19/14 [facility], [address] [place] [id number] Discharge Disposition: 01-Home or Self Care Attending Physician: Mic Soni MD Admitting Physician: Mic Soni MD Vital Signs Most recent to 1 oldest [Reference Range]: Temperature Tympanic 37.3 degC [36.6-38.1 degC] (09/19/14 4:06 PM) Blood Pressure 126/76 mmHg [90-140/60-90 mmHg] (09/19/14 4:06 PM) Problem List Condition Effective Dates Status [...] BEDTIME, # 60 tabs, 3 Refill(s), Pharmacy: [id number], TAKE TWO TABLETS IN THE AM AND [...] Daily, # 16 g, 11 Refill(s), Pharmacy: [facility] Start Date: 01/10/14 Stop Date: 01/05/15 Status: Ordered lisinopril 20 mg oral tablet See Instructions, TAKE ONE TABLET BY MOUTH ONCE DAILY, # 90 Each, 0 Refill(s), Pharmacy: [facility] Start Date: 02/19/15 Status: Ordered [place] 7.5 mg-325 mg oral tablet 1 -2 tabs, Oral, q4hr, as needed for pain, rx must last 30 days--- fax to [facility] L, # 90 tabs, 0 Refill(s) Start Date: 09/08/14 Status: Ordered promethazine 25 mg oral tablet See Instructions, 1 tabs Oral q4hr,x30 days,PRN:as needed for nausea/vomiting, # 60 tabs, 3 Refill(s), Pharmacy: [facility], 1 tabs Oral q4hr,x30 days,PRN:as needed for nausea/vomiting Start Date: 01/25/15 Status: Ordered rOPINIRole 1 mg oral tablet See Instructions, TAKE ONE TABLET BY MOUTH 4 TIMES DAILY, # 120 tabs, 1 Refill(s ), Pharmacy: [facility], TAKE ONE TABLET [...] Visit Note Author: Mic Soni MD Date: 09/19/14 Assessment/Plan Depression Rotator cuff tear (bilateral) Plan: I'm going to restart your citalopram 20 mg a in want to see back in 3 weeks. At that time would consider adding Levitra and her increasing her dose citalopram. I had some trouble with her med program today sending an outside have Diana call it to [facility]. Dr. Almodovar or orthopedic doctor BC we'll send me a note regarding your shoulders.
--- OUTSIDE RECORDS SUMMARY | 2016-05-14 19:11 | XMS REPORT | Referral Summary ---
Author Author [facility] Organization [facility] Address Unknown Phone Unavailable Care Team Providers Care Waterworks Pump Station Operator Name Role Phone Natali Velazquez Primary Care Physician [phone] Encounter VC Date(s): 11/13/15 - 11/13/15 [facility], [address] [place] [id number] Discharge Disposition: 01-Home or Self Care Attending Physician: Marcelino Hodge APRN Admitting Physician: Marcelino Hodge APRN Vital Signs Most recent to 1 oldest [Reference Range]: Temperature Tympanic 36.6 degC [36.6-38.1 degC] (11/13/15 8:06 AM) Peripheral Pulse 80 bpm Rate [60-100 bpm] (11/13/15 8:06 AM) Respiratory Rate 16 br/min [14-20 br/min] (11/13/15 8:06 AM) Blood Pressure 130/70 mmHg [90-140/60-90 mmHg] (11/13/15 8:06 AM) SpO2 97 % (11/13/15 8:06 AM) Problem List Condition Effective Dates Status [...] BEDTIME, # 60 tabs, 1 Refill(s), eRx: [facility], TAKE TWO TABLETS BY MOUTH IN THE MORNING AND ONE AT BEDTIME Start Date: 10/22/15 Status: Ordered aspirin 81 mg, Oral, Daily, 0 Refill(s) Start Date: 08/24/13 Status: Ordered citalopram 20 mg oral tablet 20 mg 1 tabs, Oral, Daily, pt due for appointment, # 30 tabs, 0 Refill(s), Pharmacy: [facility], 1 tabs Oral Daily,Instr:pt due for appointment Start Date: 07/26/15 Status: Ordered Colace 100 mg oral capsule 100 mg 1 caps, Oral, BID, # 20 caps, 0 Refill(s) Start Date: 01/10/15 Status: Ordered cyclobenzaprine 10 mg oral tablet 10 mg 1 tabs, Oral, Daily, as needed for spasm, # 30 tabs, 0 Refill(s) Start Date: 01/10/15 Status: Ordered gabapentin 600 mg oral tablet 600 mg 1 tabs, Oral, Daily, # 30 tabs, 0 Refill(s), Pharmacy: [facility], 1 tabs Oral Daily Start Date: 10/19/15 Status: Ordered lisinopril 20 mg oral tablet 20 mg 1 tabs, Oral, Daily, PT OVER DUE FOR APPOINTMENNT , NO MORE REFILLS UNTIL SEEN, # 30 tabs, 0 Refill(s), Pharmacy: [facility] Start Date: 09/05/15 Status: Ordered MiraLax 17 g, Oral, Daily, 0 Refill(s) Start Date: 04/26/15 Status: Ordered multivitamin Daily, 0 Refill(s) Start Date: 04/26/15 Status: Ordered [place] 7.5 mg-325 mg oral tablet 1 -2 tabs, Oral, q4hr, as needed for pain, rx must last 30 days--- fax to Jorge L, # 90 tabs, 0 Refill(s) Start Date: 09/08/14 Status: Ordered promethazine 25 mg oral tablet See Instructions, 1 tabs Oral q4hr,x30 days,PRN:as needed for nausea/vomiting, # 60 tabs, 3 Refill(s), Pharmacy: [facility], 1 tabs Oral q4hr,x30 days,PRN:as needed for nausea/vomiting Start Date: 01/25/15 Status: Ordered rOPINIRole 1 mg oral tablet 1 mg 1 tabs, Oral, QID, pt due for appointment, # 120 tabs, 0 Refill(s), Pharmacy: [facility], 1 tabs Oral QID,Instr:pt due for appointment Start Date: 07/26/15 Status: Ordered Roxicodone 5 mg oral tablet 1-3 tabs, Oral, q3hr, as needed for pain, 0 Refill(s) Start Date: 04/26/15 Status: Ordered Results Chemistry Most recent to 1 oldest [Reference Range]: Hgb A1c [4.1-5.6 %] 5.1 % (11/13/15 10:30 AM) eAvg Glucose 99.7 mg/dL (11/13/15 10:30 AM) Immunizations No data available for this section Procedures Procedure Date Related Diagnosis Body Site Collection of venous blood by venipuncture 11/13/15 Colonoscopy1 09/05/13 Athr knees shoulders2 Back surgery [...]
--- OUTSIDE RECORDS SUMMARY | 2016-05-14 19:11 | XMS REPORT | Referral Summary ---
Author Author [facility], [facility] Organization [facility] Address Unknown Phone Unavailable Care Team Providers Care Manager Subway Name Role Phone Natali Velazquez Primary Care Physician [phone] Encounter VC Date(s): 01/24/15 - 01/24/15 [facility] [address] [place] [id number] Discharge Diagnosis: Depression Discharge Diagnosis: Hypertension Discharge Diagnosis: GERD (gastroesophageal reflux disease) Discharge Diagnosis: RLS (restless legs syndrome) Discharge Diagnosis: Rotator cuff tear (bilateral) Discharge Diagnosis: Gout NOS Discharge Disposition: 01-Home or Self Care Attending Physician: Niesha Velazquez DO Admitting Physician: Niesha Velazquez DO Vital Signs Most recent to 1 oldest [Reference Range]: Temperature Tympanic 37.0 degC [36.6-38.1 degC] (01/24/15 8:24 AM) Peripheral Pulse 78 bpm Rate [60-100 bpm] (01/24/15 8:24 AM) Respiratory Rate 17 br/min [14-20 br/min] (01/24/15 8:24 AM) Blood Pressure 130/70 mmHg [90-140/60-90 mmHg] (01/24/15 8:24 AM) SpO2 98 % (01/24/15 8:24 AM) Problem List Condition Effective Dates Status [...] BEDTIME, # 60 tabs, 3 Refill(s), Pharmacy: [place] [facility] [id number], TAKE TWO TABLETS IN THE AM AND [...] Daily, # 16 g, 11 Refill(s), Pharmacy: [facility] Start Date: 01/10/14 Stop Date: 01/05/15 Status: Ordered lisinopril 20 mg oral tablet See Instructions, TAKE ONE TABLET BY MOUTH ONCE DAILY, # 30 tabs, eRx: [facility], TAKE ONE TABLET BY MOUTH ONCE DAILY Start Date: 01/18/15 Status: Ordered [facility] [place] 7.5 mg-325 mg oral tablet 1 -2 tabs, Oral, q4hr, as needed for pain, rx must last 30 days--- fax to [facility], # 90 tabs, 0 Refill(s) Start Date: 09/08/14 Status: Ordered promethazine 25 mg oral tablet See Instructions, 1 tabs Oral q4hr,x30 days,PRN:as needed for nausea/vomiting, # 60 tabs, 3 Refill(s), Pharmacy: [facility] [address], 1 tabs Oral q4hr,x30 days,PRN:as needed for nausea/vomiting Start Date: 01/24/15 Status: Ordered rOPINIRole 1 mg oral tablet See Instructions, TAKE ONE TABLET BY MOUTH 4 TIMES DAILY, # 120 tabs, 2 Refill(s ), eRx: [facility], TAKE ONE TABLET BY MOUTH [...] Extracted from: Title: Office Visit Note Author: Niesha Velazquez DO Date: 01/24/15 Assessment/Plan Depression Continue citalopram, return to clinic 3 months. Ordered: Office Visit Level 4 Est 79888 GERD (gastroesophageal reflux disease) We'll continue the promethazine when necessary. Gout NOS Continue allopurinol at current dose. CMP in next 3-6 months for further monitoring. Ordered: Office Visit Level 4 Est 36546 Hypertension Continue current medication. This is working well. CMP in 5 months. Ordered: Office Visit Level 4 Est 14543 RLS (restless legs syndrome) Continue ropinirole. Rotator cuff tear (bilateral) Continue per Dr. Dutta. Please let us know if he would like us to take back over the [facility] [place] prescription. Return to clinic 3 months. Ordered: Office Visit Level 4 Est 92406 Orders: allopurinol, See Instructions, TAKE TWO TABLETS IN THE AM AND 1 AT BEDTIME, # 60 tabs, 3 Refill(s), Pharmacy: [facility], TAKE TWO TABLETS IN THE AM AND 1 AT BEDTIME promethazine, See Instructions, 1 tabs Oral q4hr,x30 days,PRN:as needed for nausea/vomiting, # 60 tabs, 3 Refill(s), Pharmacy: [facility], 1 tabs Oral q4hr,x30 days,PRN:as needed for nausea/vomiting
--- OUTSIDE RECORDS SUMMARY | 2016-05-14 19:12 | XMS REPORT | Referral Summary ---
Author Author [facility], [facility] [facility] Organization [facility] [place] Address Unknown Phone Unavailable Care Team Providers Care Grain Roaster Name Role Phone AmrcusNatali Primary Care Physician [phone] Encounter [facility] [id number] Date(s): 02/18/16 - 02/18/16 [facility], [place] [address], [place] [address] Discharge Diagnosis: JOSE on CPAP Discharge Diagnosis: Hypersomnia with sleep apnea Discharge Diagnosis: RLS (restless legs syndrome) Discharge Disposition: 01-Home or Self Care Attending Physician: Hermelindo Dougherty MD Admitting Physician: Hermelindo Dougherty MD Vital Signs Most recent to 1 oldest [Reference Range]: Peripheral Pulse 88 bpm Rate [60-100 bpm] (02/18/16 8:46 AM) Blood Pressure 126/72 mmHg [90-140/60-90 mmHg] (02/18/16 8:46 AM) SpO2 97 % (02/18/16 8:46 AM) Problem List Condition Effective Dates Status [...] Instructions, TAKE TWO TABLETS BY MOUTH ONCE DAILY IN THE MORNING AND ONE AT BEDTIME, # 60 tabs, [facility]Rx: [facility] Start Date: 02/18/16 Status: Ordered aspirin 81 mg, Oral, Daily, 0 Refill(s) Start Date: 08/24/13 Status: Ordered citalopram 20 mg oral tablet 20 mg 1 tabs, Oral, Daily, pt due for appointment, # 30 tabs, 0 Refill(s), Pharmacy: [place] [address], 1 tabs Oral Daily,Instr:pt due for appointment [...] 2 Refill(s) Start Date: 11/20/15 Status: Ordered gabapentin 600 mg oral tablet 600 mg 1 tabs, Oral, Daily, Take at 1pm. Start 300mg for 3-5 days. This is in addition to bedtime dose., # 30 tabs, 0 Refill(s), Pharmacy: [place] [address], 1 tabs Oral Daily,Instr:Take at 1pm. ; Start 300mg for 3-5 days. ; This is in additi... Start Date: 02/18/16 Status: Ordered lisinopril 20 mg oral tablet See Instructions, TAKE ONE TABLET BY MOUTH ONCE DAILY, # 30 tabs, eRx: [place] [id number] Start Date: 01/29/16 Status: Ordered MiraLax 17 g, Oral, Daily, 0 Refill(s) Start Date: 04/26/15 Status: Ordered multivitamin Daily, 0 Refill(s) Start Date: 04/26/15 Status: Ordered [place] 7.5 mg-325 mg oral tablet 1 -2 tabs, Oral, q4hr, as needed for pain, rx must last 30 days--- fax to [facility], # 90 tabs, 0 Refill(s) Start Date: 09/08/14 Status: Ordered promethazine 25 mg oral tablet See Instructions, 1 tabs Oral q4hr,x30 days,PRN:as needed for nausea/vomiting, # 60 tabs, 3 Refill(s), Pharmacy: [facility], 1 tabs Oral q4hr,x30 days,PRN:as needed for nausea/vomiting Start Date: 01/25/15 Status: Ordered rOPINIRole 1 mg oral tablet 1 mg 1 tabs, Oral, QID, pt due for appointment, # 120 tabs, 0 Refill(s), Pharmacy: [facility], 1 tabs Oral QID,Instr:pt due [...] Office Visit Note Author: Hermelindo Dougherty Date: 02/18/16 MD Assessment/Plan 1.JOSE on CPAP 2.Hypersomnia with sleep apnea - Excellent compliance and adequate response to therapy. - Patient reports controlled symptoms with CPAP use. - Persistent hypersomnia could be in part due to medications. - Patient advised to avoid driving and other potentially harmful activities if feeling sleepy, drowsy or otherwise impaired. Countermeasures such as pulling over to nap and napping before driving discussed. - Objective therapy report from CPAP unit confirms compliance and controlled AHI. - Patient is advised to avoid driving or other potentially harmful activities if sleepy, drowsy or otherwise impaired. - Weight loss recommended. - Follow up yearly. 3.RLS (restless legs syndrome) - Add a dose of gabapentin at 1 pm. Start 300mg, may increase to 600mg after 3 days if no benefit. - Explained risk of sleepiness. Safety precautions discussed, as above.
--- OUTSIDE RECORDS SUMMARY | 2016-05-14 19:12 | XMS REPORT | Referral Summary ---
Author Author [facility] Organization [facility] Address Unknown Phone Unavailable Care Team Providers Care Plastic Surgeon Name Role Phone Rosamaria Soni Primary Care Physician [phone] Encounter Date(s): 07/06/14 - 07/06/14 [facility] [address] [id number] Discharge Diagnosis: RLS (restless legs syndrome) Discharge Diagnosis: JOSE on CPAP Discharge Diagnosis: Hypersomnia with sleep apnea Discharge Disposition: 01-Home or Self Care Attending Physician: Noemi Lin Admitting Physician: Noemi Lin Referring Physician: Noemi Lin Vital Signs Most recent to 1 oldest [Reference Range]: Peripheral Pulse 85 bpm Rate [60-100 bpm] (07/06/14 4:08 PM) Blood Pressure 126/72 mmHg [90-140/60-90 mmHg] (07/06/14 4:08 PM) SpO2 96 % (07/06/14 4:08 PM) Problem List Condition Effective Dates Status [...] DAILY, # 60 tabs, 5 Refill(s), eRx: [facility], TAKE TWO TABLETS BY MOUTH ONCE DAILY Start Date: 08/07/14 Status: Ordered aspirin 81 mg, Oral, Daily, 0 Refill(s) Start Date: 08/24/13 Status: Ordered citalopram 20 mg oral tablet 20 mg 1 tabs, Oral, Daily, # 90 tabs, 2 Refill(s) Start Date: 09/19/14 Status: Ordered Flonase 50 mcg/inh nasal spray 2 sprays, Nasal, Daily, # 16 g, 11 Refill(s), Pharmacy: [place] [facility] [address] Start Date: 01/10/14 Stop Date: 01/05/15 Status: Ordered lisinopril 20 mg oral tablet See Instructions, TAKE ONE TABLET BY MOUTH ONCE DAILY, # 30 tabs, 4 Refill(s), eRx: [place] [id number], TAKE ONE TABLET BY MOUTH ONCE DAILY Start Date: 08/28/14 Status: Ordered Neupro 3 mg/24 hr transdermal film, extended release 1 patches, Topical, Daily, # 90 Each, 1 Refill(s), Pharmacy: [place] [address], 1 patches Topical Daily Start Date: 10/20/14 Status: Ordered [place] 7.5 mg-325 mg oral tablet 1 -2 tabs, Oral, q4hr, as needed for pain, rx must last 30 days--- fax to [facility], # 90 tabs, 0 Refill(s) Start Date: 09/08/14 Status: Ordered omeprazole 20 mg oral delayed release capsule See Instructions, TAKE ONE CAPSULE BY MOUTH EVERY DAY BEFORE A MEAL, # 30 unknown unit, 5 Refill(s), eRx: [id number], TAKE ONE CAPSULE BY MOUTH EVERY DAY BEFORE A MEAL Start Date: 12/23/13 Status: Ordered promethazine 25 mg oral tablet See Instructions, 1 tabs Oral q4hr,x30 days,PRN:as needed for nausea/vomiting, # 60 tabs, eRx: [facility], 1 tabs Oral q4hr,x30 days,PRN:as needed for nausea/vomiting Start Date: 12/05/14 Status: Ordered rOPINIRole 1 mg oral tablet See Instructions, TAKE ONE TABLET BY MOUTH 4 TIMES DAILY, # 120 tabs, 2 Refill(s ), eRx: [facility], TAKE ONE TABLET BY MOUTH 4 TIMES [...] Extracted from: Title: Office Visit Note Author: Noemi Lin Date: 07/06/14 Assessment/Plan Hypersomnia with sleep apnea -Persistent, with worsening RLS symptoms and inadequate sleep time as a result. He is also having residual apneas on his download along with a leak that may be a result of oral air leak. He will be fitted for a chinstrap along with his mask. -Continue at same pressure as recent titration study showed this to be effective. -Increase available sleep time and work on sleep hygiene. -Medication adjustment for RLS as below. -Consider alerting medication once the RLS symptoms are under better control. -Avoid driving or partaking in hazardous activities if drowsy. -F/u with Dr. Fajardo in 1 month. JOSE on CPAP - Not as adequatelytreated with CPAP likely on account of oral air leak. He will be fitted for a chinstrap to wearwith his nasal mask and may require a full face mask if this does not work. RLS medication adjustment. Continue CPAP with all sleep at current pressure of 12cm. -CPAP download reviewed with the patient and patient is complying with and benefitting from treatment. -Avoid driving , partaking in hazardous activities, or operating heavy machinery if drowsy - this was reiterated to him several times during the visit. -Continue appropriate cleaning of the machine/humidifier and update of all supplies including mask , tubing , and filters . -Return for follow-up in 1 month . Return/call sooner if any problems arise in the meantime. RLS (restless legs syndrome) -Discussed with Dr. Pitts. -Avoid alcohol use at all as this can worsen RLS. -He may need to gradually taper off the Celexa andoptimize the wellbutrin, which should not affect the RLS. He will work with his PCP in regard to this. -Samples of Neupro patches 3mg/24 hours. He will pick these up in our office tomorrow. He is to start the patch after showering and to stop the Requip when the patch is applied. He will call the pharmacy to get an exact cost on this as his insurance does not cover medication. -Avoidance of alcohol. -Could consider clonazepam at bedtime as an option and possibly tapering him off the gabapentin. This would also help with his sleep. -F/u in [address] Fajardo.
--- OUTSIDE RECORDS SUMMARY | 2016-05-14 19:12 | XMS REPORT | Referral Summary ---
Author Author [facility] Organization [facility] Address Unknown Phone Unavailable Care Team Providers Care Carrier Packer Name Role Phone Rosamaria Soni Primary Care Physician [phone] Encounter Date(s): 07/06/14 - 07/06/14 [facility] [address] [address] Discharge Diagnosis: RLS (restless legs syndrome) [...] DAILY, # 60 tabs, 5 Refill(s), eRx: [facility], TAKE TWO TABLETS BY MOUTH ONCE DAILY Start Date: 08/07/14 Status: Ordered aspirin 81 mg, Oral, Daily, 0 Refill(s) Start Date: 08/24/13 Status: Ordered citalopram 20 mg oral tablet 20 mg 1 tabs, Oral, Daily, # 90 tabs, 2 Refill(s) Start Date: 09/19/14 Status: Ordered Flonase 50 mcg/inh nasal spray 2 sprays, Nasal, Daily, # 16 g, 11 Refill(s), Pharmacy: [facility] [place] [id number] Start Date: 01/10/14 Stop Date: 01/05/15 Status: Ordered lisinopril 20 mg oral tablet See Instructions, TAKE ONE TABLET BY MOUTH ONCE DAILY, # 30 tabs, 4 Refill(s), eRx: [facility] [place] [id number], TAKE ONE TABLET BY MOUTH ONCE DAILY Start Date: 08/28/14 Status: Ordered Neupro 3 mg/24 hr transdermal film, extended release 1 patches, Topical, Daily, # 90 Each, 1 Refill(s), Pharmacy: [place] [id number], 1 patches Topical Daily Start Date: 10/20/14 Status: Ordered [place] 7.5 mg-325 mg oral tablet 1 -2 tabs, Oral, q4hr, as needed for pain, rx must last 30 days--- fax to [facility], # 90 tabs, 0 Refill(s) Start Date: 09/08/14 Status: Ordered omeprazole 20 mg oral delayed release capsule See Instructions, TAKE ONE CAPSULE BY MOUTH EVERY DAY BEFORE A MEAL, # 30 unknown unit, 5 Refill(s), eRx: [facility] [place] [id number], TAKE ONE CAPSULE BY MOUTH EVERY DAY BEFORE A MEAL Start Date: 12/23/13 Status: Ordered promethazine 25 mg oral tablet See Instructions, 1 tabs Oral q4hr,x30 days,PRN:as needed for nausea/vomiting, # 60 tabs, eRx: [facility], 1 tabs Oral q4hr,x30 days,PRN:as needed for nausea/vomiting Start Date: 12/05/14 Status: Ordered rOPINIRole 1 mg oral tablet See Instructions, TAKE ONE TABLET BY MOUTH 4 TIMES DAILY, # 120 tabs, 2 Refill(s ), eRx: [id number], TAKE ONE TABLET BY MOUTH 4 TIMES [...]
--- OUTSIDE RECORDS SUMMARY | 2016-05-14 19:12 | XMS REPORT | Referral Summary ---
Author Author [facility] Organization [facility] [employer] [place] Address Unknown Phone Unavailable Care Team Providers Care Residence Hall Director Name Role Phone Natali Velazquez Primary Care Physician [phone] Encounter Date(s): 08/07/15 - 08/07/15 [facility] [employer] [place] [address] [place], [place] [address] Discharge Disposition: 01-Home or Self Care Attending Physician: Noemi Lin Admitting Physician: Noemi Lin Vital Signs Most recent to 1 oldest [Reference Range]: Peripheral Pulse 97 bpm Rate [60-100 bpm] (08/07/15 1:18 PM) Blood Pressure 122/78 mmHg [90-140/60-90 mmHg] (08/07/15 1:18 PM) SpO2 96 % (08/07/15 1:18 PM) Problem List Condition Effective Dates Status [...] BEDTIME, # 60 tabs, 2 Refill(s), eRx: [id number], TAKE TWO TABLETS BY MOUTH IN THE MORNING AND ONE AT BEDTIME Start Date: 06/25/15 Status: Ordered aspirin 81 mg, Oral, Daily, 0 Refill(s) Start Date: 08/24/13 Status: Ordered citalopram 20 mg oral tablet 20 mg 1 tabs, Oral, Daily, pt due for appointment, # 30 tabs, 0 Refill(s), Pharmacy: [facility], 1 tabs Oral Daily,Instr:pt due [...] daily., # 90 tabs, 0 Refill(s), Pharmacy: [facility], Take 1 cap daily x 2 days, then 2 caps daily x 2 days, then 3 caps daily. Start Date: 08/07/15 Status: Ordered lisinopril 20 mg oral tablet 20 mg 1 tabs, Oral, Daily, pt due for appointment, # 30 tabs, 0 Refill(s), Pharmacy: [facility] Start Date: 07/26/15 Status: Ordered MiraLax 17 g, Oral, Daily, 0 Refill(s) Start Date: 04/26/15 Status: Ordered multivitamin Daily, 0 Refill(s) Start Date: 04/26/15 Status: Ordered [place] 7.5 mg-325 mg oral tablet 1 -2 tabs, Oral, q4hr, as needed for pain, rx must last 30 days--- fax to [facility], # 90 tabs, 0 Refill(s) Start Date: 09/08/14 Status: Ordered promethazine 25 mg oral tablet See Instructions, 1 tabs Oral q4hr,x30 days,PRN:as needed for nausea/vomiting, # 60 tabs, 3 Refill(s), Pharmacy: [facility], 1 tabs Oral q4hr,x30 days,PRN:as needed for nausea/vomiting Start Date: 01/25/15 Status: Ordered rOPINIRole 1 mg oral tablet 1 mg 1 tabs, Oral, QID, pt due for appointment, # 120 tabs, 0 Refill(s), Pharmacy: [facility], 1 tabs Oral QID,Instr:pt due for appointment [...]
--- OUTSIDE RECORDS SUMMARY | 2016-05-14 19:12 | XMS REPORT | Referral Summary ---
Author Author [facility] Organization [facility] Address Unknown Phone Unavailable Care Team Providers Care Email Marketing Processor Name Role Phone Natali Velazquez Primary Care Physician [phone] Encounter VC Date(s): 07/06/14 - 07/06/14 [facility] [address], [place] [address] Discharge Disposition: 01-Home or Self Care Attending Physician: Mally Luong, [facility] Admitting Physician: [facility] Cherise, [facility] Vital Signs No data available for this [...] 1 AT BEDTIME, # 60 tabs, eRx: [id number], TAKE TWO TABLETS BY MOUTH ONCE DAILY [...] Daily, # 16 g, 11 Refill(s), Pharmacy: [place] [id number] Start Date: 01/10/14 Stop Date: 01/05/15 Status: Ordered lisinopril 20 mg oral tablet See Instructions, TAKE ONE TABLET BY MOUTH ONCE DAILY, # 30 tabs, 4 Refill(s), eRx: [facility], TAKE ONE TABLET BY MOUTH ONCE DAILY Start Date: 08/28/14 Status: Ordered [place] 7.5 mg-325 mg oral tablet 1 -2 tabs, Oral, q4hr, as needed for pain, rx must last 30 days--- fax to [facility], # 90 tabs, 0 Refill(s) Start Date: 09/08/14 Status: Ordered promethazine 25 mg oral tablet See Instructions, 1 tabs Oral q4hr,x30 days,PRN:as needed for nausea/vomiting, # 60 tabs, eRx: [facility], 1 tabs Oral q4hr,x30 days,PRN:as needed for nausea/vomiting Start Date: 12/05/14 Status: Ordered rOPINIRole 1 mg oral tablet See Instructions, TAKE ONE TABLET BY MOUTH 4 TIMES DAILY, # 120 tabs, 2 Refill(s ), eRx: [facility], TAKE ONE TABLET BY [...]
--- OUTSIDE RECORDS SUMMARY | 2016-05-14 19:12 | XMS REPORT | Referral Summary ---
Author Author [facility] Organization [facility] Address Unknown Phone Unavailable Care Team Providers Care It Integration Architect Name Role Phone Rosamaria Soni Primary Care Physician [phone] Encounter Date(s): 07/06/14 - 07/06/14 [facility] [address] [address] Discharge Diagnosis: RLS (restless legs syndrome) [...] DAILY, # 60 tabs, 5 Refill(s), eRx: [facility], TAKE TWO TABLETS BY MOUTH ONCE DAILY Start Date: 08/07/14 Status: Ordered aspirin 81 mg, Oral, Daily, 0 Refill(s) Start Date: 08/24/13 Status: Ordered citalopram 20 mg oral tablet 20 mg 1 tabs, Oral, Daily, # 90 tabs, 2 Refill(s) Start Date: 09/19/14 Status: Ordered Flonase 50 mcg/inh nasal spray 2 sprays, Nasal, Daily, # 16 g, 11 Refill(s), Pharmacy: [place] [id number] Start Date: 01/10/14 Stop Date: 01/05/15 Status: Ordered lisinopril 20 mg oral tablet See Instructions, TAKE ONE TABLET BY MOUTH ONCE DAILY, # 30 tabs, 4 Refill(s), eRx: [facility] [id number], TAKE ONE TABLET BY MOUTH ONCE DAILY Start Date: 08/28/14 Status: Ordered Neupro 3 mg/24 hr transdermal film, extended release 1 patches, Topical, Daily, # 90 Each, 1 Refill(s), Pharmacy: [place] [address], 1 patches Topical Daily Start Date: 10/20/14 Status: Ordered [place] 7.5 mg-325 mg oral tablet 1 -2 tabs, Oral, q4hr, as needed for pain, rx must last 30 days--- fax to [facility], # 90 tabs, 0 Refill(s) Start Date: 09/08/14 Status: Ordered omeprazole 20 mg oral delayed release capsule See Instructions, TAKE ONE CAPSULE BY MOUTH EVERY DAY BEFORE A MEAL, # 30 unknown unit, 5 Refill(s), eRx: [place] [id number], TAKE ONE CAPSULE BY MOUTH EVERY DAY BEFORE A MEAL Start Date: 12/23/13 Status: Ordered promethazine 25 mg oral tablet See Instructions, 1 tabs Oral q4hr,x30 days,PRN:as needed for nausea/vomiting, # 60 tabs, eRx: [facility], 1 tabs Oral q4hr,x30 days,PRN:as needed for nausea/vomiting Start Date: 12/05/14 Status: Ordered rOPINIRole 1 mg oral tablet See Instructions, TAKE ONE TABLET BY MOUTH 4 TIMES DAILY, # 120 tabs, 2 Refill(s ), eRx: [facility], TAKE ONE TABLET BY MOUTH 4 TIMES [...]
--- OUTSIDE RECORDS SUMMARY | 2016-05-14 19:12 | XMS REPORT | Referral Summary ---
Author Author [facility] Organization [facility] Address Unknown Phone Unavailable Care Team Providers Care Chief Ii Dispatcher Name Role Phone Natali Velazquez Primary Care Physician [phone] Encounter VC Date(s): 07/06/14 - 07/06/14 [facility] [address] [facility], [facility] [address] [place], [place] [address] Discharge Diagnosis: RLS (restless legs syndrome) Discharge Diagnosis: JOSE on CPAP Discharge Diagnosis: Hypersomnia with sleep apnea Discharge Disposition: 01-Home or Self Care Attending Physician: Noemi Lin Admitting Physician: Noemi Lin Referring Physician: Noemi Lni Vital Signs Most recent to 1 oldest [...] 1 AT BEDTIME, # 60 tabs, eRx: [facility], TAKE TWO TABLETS BY [...] Daily, # 16 g, 11 Refill(s), Pharmacy: [place] [id number] Start Date: 01/10/14 Stop Date: 01/05/15 Status: Ordered lisinopril 20 mg oral tablet See Instructions, TAKE ONE TABLET BY MOUTH ONCE DAILY, # 30 tabs, 4 Refill(s), eRx: [facility] 2428, TAKE ONE TABLET BY MOUTH ONCE DAILY Start Date: 08/28/14 Status: Ordered [place] 7.5 mg-325 mg oral tablet 1 -2 tabs, Oral, q4hr, as needed for pain, rx must last 30 days--- fax to [facility], # 90 tabs, 0 Refill(s) Start Date: 09/08/14 Status: Ordered promethazine 25 mg oral tablet See Instructions, 1 tabs Oral q4hr,x30 days,PRN:as needed for nausea/vomiting, # 60 tabs, eRx: [facility], 1 tabs Oral q4hr,x30 days,PRN:as needed for nausea/vomiting Start Date: 12/05/14 Status: Ordered rOPINIRole 1 mg oral tablet See Instructions, TAKE ONE TABLET BY MOUTH 4 TIMES DAILY, # 120 tabs, 2 Refill(s ), eRx: [facility], TAKE ONE TABLET [...]
--- OUTSIDE RECORDS SUMMARY | 2016-05-14 19:12 | XMS REPORT | Referral Summary ---
Author Author [facility] [employer] Organization [facility] [employer] [place] Address Unknown Phone Unavailable Care Team Providers Care Director Of Security Name Role Phone MarcusNatali Primary Care Physician [phone] Encounter Date(s): 08/06/15 - 08/06/15 [facility] [place] [address] [place], [place] [address] Discharge Disposition: 01-Home or Self Care Attending Physician: Noemi Lin Admitting Physician: Noemi Lin Vital Signs No data [...] BEDTIME, # 60 tabs, 2 Refill(s), eRx: [facility], TAKE TWO TABLETS BY MOUTH IN THE MORNING AND ONE AT BEDTIME Start Date: 06/25/15 Status: Ordered aspirin 81 mg, Oral, Daily, 0 Refill(s) Start Date: 08/24/13 Status: Ordered citalopram 20 mg oral tablet 20 mg 1 tabs, Oral, Daily, pt due for appointment, # 30 tabs, 0 Refill(s), Pharmacy: [facility], 1 tabs Oral Daily,Instr:pt [...] appointment, # 30 tabs, 0 Refill(s), Pharmacy: [facility]28 Start Date: 07/26/15 Status: Ordered MiraLax 17 g, Oral, Daily, 0 Refill(s) Start Date: 04/26/15 Status: Ordered multivitamin Daily, 0 Refill(s) Start Date: 04/26/15 Status: Ordered [place] 7.5 mg-325 mg oral tablet 1 -2 tabs, Oral, q4hr, as needed for pain, rx must last 30 days--- fax to [facility], # 90 tabs, 0 Refill(s) Start Date: 09/08/14 Status: Ordered promethazine 25 mg oral tablet See Instructions, 1 tabs Oral q4hr,x30 days,PRN:as needed for nausea/vomiting, # 60 tabs, 3 Refill(s), Pharmacy: [facility], 1 tabs Oral q4hr,x30 days,PRN:as needed for nausea/vomiting Start Date: 01/25/15 Status: Ordered rOPINIRole 1 mg oral tablet 1 mg 1 tabs, Oral, QID, pt due for appointment, # 120 tabs, 0 Refill(s), Pharmacy: [facility], 1 tabs Oral QID,Instr:pt [...]
--- OUTSIDE RECORDS SUMMARY | 2016-05-14 19:21 | XMS REPORT | Continuity of Care Document ---
Author Author [facility] Organization [facility] Address Unknown Phone Unavailable Support Name Relationship Address Phone SERA GONZÁLES MD Caregiver [address] [place] [address] [place] [phone] NANCY ALCALA FACS, MD Caregiver [address] [place] [address] [place] [phone] ASHWIN RIYA Next Of Kin [address] [place] [address] Insurance Providers Payer Name Policy Number Subscriber Name Relationship [facility] [id number] Tray Christopher 20 Self Advance Directives Directive [...] F (96.8 - 99.1) Temperature (Calculated Celsius) [phone] degrees C (36.0 - 37.3) Temperature Source [...]
--- OUTSIDE RECORDS SUMMARY | 2016-05-14 19:22 | XMS REPORT | Referral Summary ---
Author Author [facility] [place] Organization [facility] [place], [facility] Address Unknown Phone Unavailable Care Team Providers Care Box Packer Name Role Phone Natali Velazquez Primary Care Physician [phone] Encounter VC Date(s): 04/09/15 - 04/09/15 [facility] [place], [address] [place] [address] Discharge Diagnosis: Preoperative examination Discharge Disposition: 01-Home or Self Care Attending Physician: Marcelino Hodge APRN Admitting Physician: Marcelino Hodge APRN Vital Signs Most recent to 1 oldest [Reference Range]: Peripheral Pulse 72 bpm Rate [60-100 bpm] (04/09/15 8:10 AM) Respiratory Rate 18 br/min [14-20 br/min] (04/09/15 8:10 AM) Blood Pressure 120/68 mmHg [90-140/60-90 mmHg] (04/09/15 8:10 AM) Problem List Condition Effective Dates Status [...] BEDTIME, # 60 tabs, 3 Refill(s), Pharmacy: [facility], TAKE TWO TABLETS IN THE AM AND [...] Daily, # 16 g, 11 Refill(s), Pharmacy: [facility] 242 Start Date: 01/10/14 Stop Date: 01/05/15 Status: Ordered lisinopril 20 mg oral tablet See Instructions, TAKE ONE TABLET BY MOUTH ONCE DAILY, # 90 Each, 0 Refill(s), Pharmacy: [facility] 242 Start Date: 02/19/15 Status: Ordered [place] 7.5 mg-325 mg oral tablet 1 -2 tabs, Oral, q4hr, as needed for pain, rx must last 30 days--- fax to [facility], # 90 tabs, 0 Refill(s) Start Date: 09/08/14 Status: Ordered promethazine 25 mg oral tablet See Instructions, 1 tabs Oral q4hr,x30 days,PRN:as needed for nausea/vomiting, # 60 tabs, 3 Refill(s), Pharmacy: [facility], 1 tabs Oral q4hr,x30 days,PRN:as needed for nausea/vomiting Start Date: 01/25/15 Status: Ordered rOPINIRole 1 mg oral tablet See Instructions, TAKE ONE TABLET BY MOUTH 4 TIMES DAILY, # 120 tabs, 1 Refill(s ), Pharmacy: [facility]28, TAKE ONE TABLET BY MOUTH 4 TIMES DAILY Start Date: 03/20/15 Status: Ordered Results Hematology Most recent to 1 oldest [Reference Range]: WBC [4.8-10.8 5.1 10*3/uL 10*3/uL] (04/09/15 8:55 AM) RBC [4.60-6.20] 4.15 *LOW* (04/09/15 8:55 AM) Hgb [14.0-18.0 13.4 gm/dL gm/dL] *LOW* (04/09/15 8:55 AM) Hct [42.0-52.0 %] 38.4 % *LOW* (04/09/15 8:55 AM) MCV [82.0-99.0 fL] 92.5 fL (04/09/15 8:55 AM) MCH [27.0-32.0 pg] 32.3 pg *HI* (04/09/15 8:55 AM) MCHC [32.0-36.0 34.9 gm/dL gm/dL] (04/09/15 8:55 AM) RDW [11.5-14.5 %] 13.5 % (04/09/15 8:55 AM) Platelet [150-400 210 10*3/uL 10*3/uL] (04/09/15 8:55 AM) MPV [8.8-14.8 fL] 9.2 fL (04/09/15 8:55 AM) Immature 0.4 % Granulocytes (04/09/15 8:55 AM) [0.0-1.0 %] Neutrophils [51-75 64 % %] (04/09/15 8:55 AM) Lymphocytes [20-46 25 % %] (04/09/15 8:55 AM) Monocytes [4-11 %] 8 % (04/09/15 8:55 AM) Eosinophils [0-4 %] 2 % (04/09/15 8:55 AM) Basophils [0-2 %] 1 % (04/09/15 8:55 AM) Neutro Absolute 3.24 10*3 [1.90-7.00 10*3] (04/09/15 8:55 AM) Lymph Absolute 1.29 10*3 [0.80-3.30 10*3] (04/09/15 8:55 AM) [place] Absolute 0.40 10*3 [0.30-1.00 10*3] (04/09/15 8:55 AM) Eos Absolute 0.10 10*3 [0.00-0.50 10*3] (04/09/15 8:55 AM) Baso Absolute 0.03 10*3 [0.00-0.20 10*3] (04/09/15 8:55 AM) Chemistry Most recent to 1 oldest [Reference Range]: Sodium Lvl [135-144 141 mEq/L mEq/L] (04/09/15 8:55 AM) Potassium Lvl 4.5 mEq/L [3.5-5.2 mEq/L] (04/09/15 8:55 AM) Chloride [99-111 110 mEq/L mEq/L] (04/09/15 8:55 AM) CO2 [23-31 mEq/L] 22 mEq/L *LOW* (04/09/15 8:55 AM) AGAP [3-20] 9 (04/09/15 8:55 AM) BUN [8-26 mg/dL] 26 mg/dL (04/09/15 8:55 AM) Glucose Lvl [70-99 113 mg/dL mg/dL] *HI* (04/09/15 8:55 AM) Creatinine Lvl 1.16 mg/dL [0.72-1.25 mg/dL] (04/09/15 8:55 AM) eGFR [>60 mL/min] >60 mL/min 1 (04/09/15 8:55 AM) Calcium Lvl 9.3 mg/dL [8.9-10.5 mg/dL] (04/09/15 8:55 AM) Albumin Lvl [3.4-4.8 4.5 gm/dL gm/dL] (04/09/15 8:55 AM) Total Protein 7.1 gm/dL [6.2-8.1 gm/dL] (04/09/15 8:55 AM) Globulin [1.8-4.0 2.6 gm/dL gm/dL] (04/09/15 8:55 AM) ALT [0-55 U/L] 51 U/L (04/09/15 8:55 AM) AST [5-34 U/L] 32 U/L (04/09/15 8:55 AM) Alk Phos [40-150 106 U/L U/L] (04/09/15 8:55 AM) Bili Total [0.2-1.2 0.4 mg/dL mg/dL] (04/09/15 8:55 AM) 1Result Comment: Multiply eGFR results by 1.21 for race. Immunizations No data available for this section Procedures Procedure Date Related Diagnosis Body Site Collection of venous blood by venipuncture 04/09/15 Colonoscopy1 09/05/13 Athr knees shoulders2 Back surgery [...]
--- OUTSIDE RECORDS SUMMARY | 2016-05-14 19:22 | XMS REPORT | Continuity of Care Document ---
Author Author [facility] Organization [facility] Address Unknown Phone Unavailable Allergies Active [...] Status Pt. Type Provider Facility Loc./Unit Complaint [id number] 05/05/2016 09:53:00 2016 23:59:00 DIS Outpatient Scotty Moncada, Hermelindo A [facility] CP SUPPLIES [id number] 05/05/2016 08:19:00 2016 23:59:00 DIS Outpatient Scotty Moncada Hermelindo A [facility] 2 to 3 mo ck cpap [id number] 02/18/2016 08:18:00 2016 23:59:00 DIS Outpatient Scotty Moncada, Hermelindo A [facility] 3 mo cpap ck [id number] 11/20/2015 08:03:00 2015 23:59:00 DIS Outpatient Scotty Moncada Hermelindo A [facility] 6 week rck rls management [id number] 11/13/2015 07:59:00 2015 23:59:00 DIS Outpatient Marcelino Hodge [facility] New FM TCPA, Skin tags [id number] 08/07/2015 14:28:00 2015 23:59:00 DIS Outpatient Noemi Lin [facility] cpap supplies [id number] 08/07/2015 13:14:00 2015 23:59:00 DIS Outpatient [facility] 3 MON HEENA CPAP [id number] 08/06/2015 16:56:00 2015 23:59:00 DIS Outpatient [facility] 3 mo heena cpap [id number] 05/15/2015 12:58:00 2015 23:59:00 DIS Outpatient Noemi Lin [facility] replace cpap @13 no auth purchase [id number] 05/15/2015 10:05:00 2015 23:59:00 DIS Outpatient [facility] CPAP SUPPLIES [id number] 05/09/2015 09:46:00 2015 23:59:00 DIS Outpatient [facility] CPAP SUPPLIES [id number] 05/09/2015 07:56:00 2015 23:59:00 DIS Outpatient [facility] 6 mo fu cpap [id number] 04/09/2015 07:59:00 2015 23:59:00 DIS Outpatient Marcelino Hodge [facility] New FM PRE OP CPE FOR RT SHOULDER REPLACEMENT DR HARMON 3.14 [id number] 12/20/2014 09:03:00 2014 23:59:00 DIS Outpatient Mic Soni [facility] New FM pre op for total shoulder on [address] harmon [id number] 10/02/2014 16:04:00 2014 23:59:00 DIS Outpatient Hermelindo Dougherty [facility] cpap pressure change [id number] 10/02/2014 15:19:00 2014 23:59:00 DIS Outpatient Hermelindo Dougherty [facility] 6 to 8 week fu [id number] 09/19/2014 15:49:00 2014 23:59:00 DIS Outpatient Mic Soni [facility] New FM HEENA ELBERT [id number] 08/08/2014 15:17:00 2014 23:59:00 DIS Outpatient Scotty Hermelindo Moncada A [facility] 1 mo ck meds cpap [id number] 07/06/2014 13:56:00 2014 23:59:00 DIS Outpatient [facility] Sleep W CPAP SUPPLIES [id number] 01/10/2014 15:18:00 2013 23:59:00 DIS Outpatient Mic Soni [facility] New FM 3 WK HEENA/RLS [id number] 10/19/2013 11:51:00 2013 23:59:00 DIS Outpatient [facility] CPAP SUPPLIES [id number] 05/09/2015 08:31:00 ACT Outpatient Noemi Lin [facility] CP SUPPLIES [id number] 01/24/2015 08:18:00 ACT Outpatient Niesha Velazquez [facility] New FM ESTABLISH WAS PATIENT OF DR SONI [id number] 07/17/2014 16:07:00 Document Registration [id number] 07/07/2014 17:35:00 Document Registration [id number] 07/06/2014 15:57:00 Document Registration
[2016-05-14] MEDS ORDERED: BUPIVACAINE 0.5% (5mg/ml) 30ml INJ SDV MM ONE (19:30)
--- NOTE | 2016-05-14 19:35 | ERPDOC ---
Departure Disposition Decision Date: May 14, 2016 Disposition Decision Time: 20:42 Disposition: 01 DISCHARGED HOME, SELF-CARE Impression Impression Impression: Primary Impression: Traumatic open fracture of middle phalanx of finger Encounter type: initial encounter Qualified Codes: S62.629B - Displaced fracture of medial phalanx of unspecified finger, initial encounter for open fracture Additional Impression: Open fracture of phalanx of finger Encounter type: initial encounter Finger: ring finger Phalanx: distal Fracture alignment: displaced Laterality: left Qualified Codes: S62.635B - Displaced fracture of distal phalanx of left ring finger, initial encounter for open fracture Severity: Mild Condition: Stable Seen By: Mid-level only Referrals: THAO ROQUE DO (Family) Patient Instructions: Finger Fracture (ED) Problems/Meds/Labs Reviewed?: Yes Medications reviewed and manag: Yes Additional Instructions: Take Keflex antibiotic 3 times a day for 7 days Use Sylvester as needed for pain control Elevate left hand Call tomorrow to schedule follow-up appointment with Dr. Dutta Keep the dressing and splint dry and intact until follow-up with orthopedics next week Monitor for any further evidence of infection including fevers, chills, redness or drainage. Return to the ER or follow-up with orthopedic team, sooner as needed Follow up care ordered?: Yes Mental Status: Alert, Oriented Scripts Cephalexin (Keflex) 500 Mg Capsule 500 MG PO TID for 21 Days, #63 CAP Prov: MILES BURT APRN 05/14/16 Hydrocodone/Apap (Sylvester 10-325 Tablet) 10-325 Tablet 1 TAB PO Q6H for PAIN, #30 TAB Prov: MILES BURT APRN 05/14/16 HPI General Chief Complaint: Laceration Stated Complaint: HAND LACERATION Time Seen by Provider: 19:15 Source: patient Exam Limitations: no limitations HPI Hand/Forearm Initial Comments 65-year-old male who presents to the emergency room for evaluation of left 3rd and 4th finger crush injury. He reports he was working with metal steel shaft and crest 3rd and 4th distal tips between 2 pieces of metal. Lacerations across both nail bed with active oozing on arrival. Occurred At: home Onset: Rapid Duration: 1 hr Pain Scale: Now: 7/10 Location: left: 3rd finger, 4th finger 1 - Laceration with crush injury 2 - Laceration with crush injury Method of Injury: other (crush injury) Associated Symptoms: pain with extension, pain with flexion Allergies: Coded Allergies: aspirin (Verified Adverse Reaction, Mild, GI BLEED PER H&P, 05/14/16) SENSITIVITY NSAIDS (Non-Steroidal Anti-Inflamma (Unverified Adverse Reaction, Unknown , N/V, 05/14/16) caffeine (Unverified Adverse Reaction, Unknown, GI BLEED PER H&P, 05/14/16) Past History Patient Medical History Problem List Updates: Hypertension Gout GERD Sleep apnea Depression Patient Surgical History Bilateral shoulder repair. Knee scope Bilateral carpal tunnel repair Rhinoplasty Colonoscopy Past Medical History Musculoskeletal: back pain Psychological: depression Surgical History General: colonoscopy Joint: carpal tunnel, shoulder Vaccines Hx Influenza Vaccination: No (DECLINES) Hx Pneumococcal Vaccination: No Social History Tobacco Comment: quit age 40 Alcohol Usage: daily Favorite Alcohol Type: beer Amount per Day/Episode: 2-4 Drug Usage: none IV Drug Use: No Sexuality: female partner Residence: home Review of Systems Constitutional Constitutional: DENIES: chills, dizziness, fever, weakness Eyes General: DENIES: pain Lids/Accessories: DENIES: erythema, lumps/nodules ENMT Sinuses: DENIES: congestion, pain, rhinorrhea Mouth/Throat: DENIES: change in voice, sore throat Cardiovascular Cardiac: DENIES: chest pain, dyspnea on exertion, murmur Rhythm/Rate: DENIES: irregular beat, palpitations Pulmonary Respiratory: DENIES: cough, dyspnea, tachypnea GI Upper Abdomen: DENIES: nausea, pain, vomiting Lower Abdomen: DENIES: blood in stool, constipation, diarrhea, pain General: DENIES: burning, dysuria, frequency, pain, urgency Musculoskeletal General: pain (left 3rd, 4th fingers), see HPI Integumentary Skin: see HPI Neurological General: DENIES: ataxia, change in strength, headache, numbness, seizures, syncope, weakness Psychiatric Psychiatric: DENIES: depression, emotional instability, irritability, nervousness All other Systems All Other Systems: Reviewed and Negative Exam General General Nourishment: well nourished, well developed, appears stated age Vital Signs: Temperature: 99.2, Source: Oral, Heart Rate: 91, Respiratory Rate : 19, BP: 141/75, Pulse Oximetry: 97 Height (Feet): 5 Height (Inches): 8.00 Fastrak Hand/Forearm Hand/Forearm : Upper Extremity: Left Fingers: laceration, tender Respiratory (brief) Respiratory Brief: FOUND: clear all gonzalez, equal bilaterally Cardiovascular (brief) Cardiac Brief: FOUND: regular rate, regular rhythm Abdomen (brief) Abdominal Brief: FOUND: bowel normo active x4 Musculoskeletal (brief) Musculoskeletal Brief: FOUND: tenderness (pain to the distal tip of 3rd and 4th fingers, left) Neurologic (brief) Neurological Brief: FOUND: CN w/o gross def to obs, motor-no gross deficits, sensory-no gross deficits Neurologic Mental Status: FOUND: alert, oriented RN Documented GCS Eye Opening: (4)Spontaneous Verbal: (5)Oriented Motor: (6)Obeys Commands Total: Psychiatric (brief) Psychiatric Brief: FOUND: alert, oriented Differential Diagnoses Considering: Amputation, Dislocation, Fingernail Avulsion, Fracture, Laceration , Vascular Compromise Procedures Procedures Performed Procedures Performed: Laceration Repair Laceration/Wound Repair Wound/Laceration Repair : Wound Location: upper extremity Wound Length (cm): 7 Depth, Shape: skin tear Explored: clean Irrigated: saline Prep: hibiclens Anesthesia: 0.5% Bupivicaine Volume Anesthetic (ccs): 4 Type of Block: digital Wound Debrided: moderate Wound Revision?: Yes Repaired With: Sutures Suture Size: 5:0 Suture Type: prolene Number of Sutures: 11 Progress Results/Orders Orders Medications Current ED Medications Bupivacaine HCl (Marcaine 0.5%) 150 mg O ONCE MM Last administered on 19:29; Start 05/14/16 at 19:30; Stop 05/14/16 at 19:31; Status DC Cefazolin Sodium 1 g 1 g O ONCE IM Last administered on 05/14/16 20:00; Start 05/14/16 at 20:00; Stop 05/14/16 at 21:14; Status DC Sodium Chloride (NS) 500 ml @ 0 mls/hr Q0M ONCE IV Last administered on 20:22; Start 05/14/16 at 20:15; Stop 05/14/16 at 20:16; Status DC Morphine Sulfate (Morphine) 2 mg O ONCE IM Last administered on 05/14/16 21:00 ; Start 05/14/16 at 20:45; Stop 05/14/16 at 21:14; Status DC Progress Progress Laceration irrigated with 500ML normal saline and Hibiclens. 3rd finger closed with 4 interrupted sutures, and 4th finger closed with 7 interrupted sutures. Patient tolerated procedure well without significant bleeding. Ancef 1 gram IM given. Patient states last tetanus shot was and within the last 2 years. 1954-spoke with Dr. Woodward, propagation worker orthopedist regarding patient injuries and findings of crush injury and fractures to the distal aspects of the 3rd and 4th phalangeal. He recommended closure of lacerations, dressing and splint and antibiotic therapy. He would recommend a follow-up with Dr. Dutta in 1 week. Reviewed plan of care including calling tomorrow morning to arrange follow-up appointment with Dr. Dutta for next week. Take Keflex antibiotic 7 days. Sylvester as needed for pain control. Patient started to leave dressing and splints in place until follow-up appointment. Instructed to follow-up sooner if he has concerns or evidence of infection including erythema, increased severe pain or drainage. MILES BURT APRN May 14, 2016 19:35
--- NOTE | 2016-05-14 19:39 | NUR ---
XRAY RADIOLOGY TO BEDSIDE FOR PORTABLE CXR
[2016-05-14] MEDS ORDERED: CEFAZOLIN 1 GRAM INJECTION IM ONE (20:00)
--- NOTE | 2016-05-14 20:13 | NUR ---
KELBY BURT DIVING JUDGE AT BEDSIDE TO SUTURE.
[2016-05-14] MEDS ORDERED: NORMAL SALINE 500 ML IV ONE (20:15)
[2016-05-14] MEDS ORDERED: MORPHINE SULFATE 2 MG SYRINGE IM ONE (20:45)
[2016-05-14] MEDS ORDERED: HYDR-3995 PO (20:49)
[2016-05-14] MEDS ORDERED: CEPH-583 PO (20:49)
[2016-05-14 21:05] VITALS: TEMP 99.2
[2016-05-14 21:09] VITALS: BP 130/64; PULSE 80; RESP 19; O2SAT 93
--- NOTE | 2016-05-15 08:01 | DI ---
Indication: ITS.REASON: 3RD, 4TH FINGER, CRUSH INJURY PROCEDURE: FINGERS LEFT 2 VIEW MIN: Encounter: Initial Comparison: None Findings: Mildly displaced comminuted fractures through the puneet of the long and ring fingers. Overlying soft tissue lacerations. No additional acute fracture or dislocation seen. Impression: Posttraumatic fractures of the long and ring finger distal phalangeal puneet. Recommend clinical correlation for evidence of open fracture. .
== END 2016-05-14 21:05 | disposition home or self-care (01) ==
LOC: ED 19:02
DX: S67.193A Crushing injury of left middle finger, initial encounter (principal); S67.195A Crushing injury of left ring finger, initial encounter; S62.633B Displaced fracture of distal phalanx of left middle finger, initial encounter for open fracture; S62.635B Displaced fracture of distal phalanx of left ring finger, initial encounter for open fracture; W23.0XXA Caught, crushed, jammed, or pinched between moving objects, initial encounter; Y93.89 Activity, other specified; Y92.009 Unspecified place in unspecified non-institutional (private) residence as the place of occurrence of the external cause; Y99.8 Other external cause status
CPT/HCPCS: 12002; 29130; 73140; 96372; 99283; J0690; S0020